=== PATIENT | female | born 1990 | race African-American/Black ===

== ENCOUNTER 2017-11-23 16:54 | Emergency (ER) | payer SELFPAY ==
[2017-11-23] MEDS ORDERED: ONDANSETRON 4 MG/2 ML VIAL ONE (18:21)
[2017-11-23] MEDS ORDERED: METOCLOPRAMIDE 10 MG/2mL INJ ONE (18:21)
[2017-11-23] MEDS ORDERED: DIPHENHYDRAMINE 50 MG/ML VIAL ONE (18:21)
[2017-11-23] MEDS ORDERED: NA CHLORIDE 0.9% 1,000 ML ONE (18:21)
--- NOTE | 2017-11-23 19:00 | EDPHYS ---
Physician Documentation [facility] Name: Cindy Gomez Age: 27 yrs Sex: Female : 1990 Arrival Date: 11/23/2017 Time: 16:55 Bed 24 Private MD: ED Physician Brian Angulo HPI: 11/23 17:50 This 27 yrs old Black Female presents to ER via Ambulatory with complaints of Headache. cp 17:50 The patient complains of pain to the right side of forehead and right temporal area and cp right frontal area. 17:50 The patient describes the headache as waxing and waning. cp 17:50 Onset: The symptoms/episode began/occurred 3 day(s) ago. cp 17:50 Associated signs and symptoms: Pertinent negatives: altered mental status, dizziness, cp fever, neck stiffness, paresthesias, sinus congestion, sinus tenderness, vision loss, weakness. Severity of symptoms: in the emergency department the pain has improved, mildly. 17:50 Headache History: Other patient denies headache being worst headache of life and denies cp "thunderclap" type onset. Patient reports location of headache different from previous. 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 - Social history:: Smoking status: Patient uses tobacco products, smokes one-half pack cigarettes per day. ROS: 18:00 Constitutional: Negative for body aches, chills, fever, poor PO intake. cp 18:00 Eyes: Negative for injury, pain, redness, and discharge. cp Exam: 18:08 Constitutional: The patient appears in no acute distress, alert, awake, non-toxic, well cp developed, well nourished, obese. 18:08 Eyes: Pupils equal round and reactive to light, extra-ocular motions intact. Lids and cp lashes normal. Conjunctiva and sclera are non-icteric and not injected. Cornea within normal limits. Periorbital areas with no swelling, redness, or edema. ENT: Nares patent. No nasal discharge, no septal abnormalities noted. Tympanic membranes are normal and external auditory canals are clear. Oropharynx with no redness, swelling, or masses, exudates, or evidence of obstruction, uvula midline. Mucous membranes moist. Neck: Trachea midline, no thyromegaly or masses palpated, and no cervical lymphadenopathy. Supple, full range of motion without nuchal rigidity, or vertebral point tenderness. No Meningismus. Chest/axilla: Normal chest wall appearance and motion. Nontender with no deformity. No lesions are appreciated. Cardiovascular: Regular rate and rhythm with a normal S1 and S2. No gallops, murmurs, or rubs. Normal PMI, no JVD. No pulse deficits. Respiratory: Lungs have equal breath sounds bilaterally, clear to auscultation and percussion. No rales, rhonchi or wheezes noted. No increased work of breathing, no retractions or nasal flaring. Abdomen/GI: Soft, non-tender, with normal bowel sounds. No distension or tympany. No guarding or rebound. No evidence of tenderness throughout. Skin: Warm, dry with normal turgor. Normal color with no rashes, no lesions, and no evidence of cellulitis. Neuro: Awake and alert, GCS 15, oriented to person, place, time, and situation. Cranial nerves II-XII grossly intact. Motor strength 5/5 in all extremities. Sensory grossly intact. Cerebellar exam normal. Normal gait. 18:08 Head/face: Noted is tenderness, that is mild, of the right confucianist and right side of forehead and right temporal area. Vital Signs: 17:13 BP 146 / 92; Pulse 85; Resp 16; Temp 97.8; Pulse Ox 100% on R/A; Weight 136.08 kg; aj Height 5 ft. 6 in. (167.64 cm); Pain 8/10; 19:02 BP 141 / 87; Pulse 84; Resp 16; Pulse Ox 100% on R/A; Pain 0/10; lk1 17:13 Body Mass Index 48.42 (136.08 kg, 167.64 cm) aj MDM: 17:17 Patient medically screened. cp 18:00 Differential diagnosis: meningitis, migraine, otitis, sinusitis, subarachnoid bleed, cp subdural hematoma, tension headache. 18:58 Data reviewed: vital signs, nurses notes, VSS. Patient reports headache resolved, and cp as a result, I will discharge patient. 11/23 17:46 Order name: IV; Complete Time: 18:02 cp Administered Medications: 18:28 Drug: NS 0.9% 1000 ml Route: IV; Rate: 1 bolus; Site: right antecubital; lk1 18:50 Follow up: IV Status: Order to discontinue infusion; IV Intake: 250ml lk1 19:11 Follow up: Response: No adverse reaction lk1 18:28 Drug: Zofran 4 mg Route: IVP; Site: right antecubital; lk1 18:50 Follow up: Response: No adverse reaction; Marked relief of symptoms lk1 18:30 Drug: Reglan 10 mg Route: IVP; Site: right antecubital; lk1 18:50 Follow up: Response: No adverse reaction; Marked relief of symptoms lk1 18:32 Drug: Benadryl 25 mg Route: IVP; Site: right antecubital; lk1 18:50 Follow up: Response: No adverse reaction; Marked relief of symptoms lk1 Disposition: 11/23/17 18:59 Discharged to Home. Impression: Headache. - Condition is Stable. - Discharge Instructions: General Headache Without Cause. - Prescriptions for Fiorinal 50- 325-40 mg Oral Capsule - take 1 capsule by ORAL route every 4 hours As needed - not to exceed 6 capsules per day; 20 capsule. Zofran 4 mg Oral Tablet - take 1 tablet by ORAL route every 12 hours As needed; 20 tablet. - Work release form, Medication Reconciliation Form, Thank You Letter, Antibiotic Education, Prescription Opioid Use form. - Follow up: Osvaldo Patterson MD; When: 1 - 2 days; Reason: Recheck today's complaints. - Problem is new. - Symptoms have improved. Addendum: 11/26/2017 19:02 Co-signature as Attending Physician, Brian Angulo MD. r n Signatures: Mary Crowe RN RN aj Nieto, Roman, MD MD rn Page, Corey, PA PA cp Kluge, Leah, RN RN lk1 Corrections: (The following items were deleted from the chart) 11/23 19:10 17:46 Urine Dipstick-Ancillary ordered. cp lk1 19:10 17:46 Urine Test ordered. cp lk1
--- NOTE | 2017-11-23 19:00 | ER ---
Nurse's Notes [facility] Name: Cindy Gomez Age: 27 yrs Sex: Female : 1990 Arrival Date: 11/23/2017 Time: 16:55 Bed 24 Private MD: Diagnosis: Headache Presentation: 11/23 17:12 Presenting complaint: Patient states: Headache that started 3 days ago and has aj increased in severity. Reports pain is on right side of head. Denies N/V or photosensitivity. Transition of care: patient was not received from another setting of care. Onset of symptoms was November 19, 2017. Initial Sepsis Screen: Does the patient meet any 2 criteria? No. Patient's initial sepsis screen is negative. Does the patient have a suspected source of infection? No. Patient's initial sepsis screen is negative. Care prior to arrival: None. 17:12 Method Of Arrival: Ambulatory 17:12 Acuity: AUDREY 3 aj Triage Assessment: 17:13 Headache History: The patient has had previous headaches and this one is different than aj previous episodes, and this one is more severe than previous episodes. General: Appears in no apparent distress. uncomfortable, Behavior is calm, cooperative, appropriate for age. Pain: Complains of pain in right frontal area, right temporal area, right side of forehead, right episcopalian and right eye Pain currently is 8 out of 10 on a pain scale. Pain began gradually, Also complains of no other associated symptoms. Neuro: Level of Consciousness is awake, alert, obeys commands, Oriented to person, place, time, situation, Appropriate for age. Respiratory: Airway is patent Respiratory effort is even, unlabored, Respiratory pattern is regular, symmetrical. Derm: Skin is intact, is healthy with good turgor, Skin is pink, warm \T\ dry. normal. 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 - Social history:: Smoking status: Patient uses tobacco products, smokes one-half pack cigarettes per day. Screenin:58 Abuse screen: Denies threats or abuse. Denies injuries from another. Nutritional lk1 screening: No deficits noted. Tuberculosis screening: No symptoms or risk factors identified. Fall Risk None identified. Assessment: 18:20 General: Appears in no apparent distress. Behavior is calm, cooperative, appropriate lk1 for age. Pain: Complains of pain in head Pain currently is 8 out of 10 on a pain scale. Quality of pain is described as aching. Neuro: Level of Consciousness is awake, alert, obeys commands, Oriented to person, place, time, situation. Cardiovascular: Capillary refill is brisk Patient's skin is warm and dry. Respiratory: Airway is patent Respiratory effort is even, unlabored, Respiratory pattern is regular, symmetrical. GI: No signs and/or symptoms were reported involving the gastrointestinal system. : No signs and/or symptoms were reported regarding the genitourinary system. EENT: No signs and/or symptoms were reported regarding the EENT system. Derm: No signs and/or symptoms reported regarding the dermatologic system. Musculoskeletal: No signs and/or symptoms reported regarding the musculoskeletal system. 18:50 Reassessment: Patient became anxious and asked IV fluids to be discontinued after lk1 infusing 250ml. States he headache is gone and she needs to be discharged. PA notified. Patient denies pain at this time. Patient states feeling better. Patient states symptoms have improved. Critical care time stopped, patient has stabilized. Vital Signs: 17:13 BP 146 / 92; Pulse 85; Resp 16; Temp 97.8; Pulse Ox 100% on R/A; Weight 136.08 kg; aj Height 5 ft. 6 in. (167.64 cm); Pain 8/10; 19:02 BP 141 / 87; Pulse 84; Resp 16; Pulse Ox 100% on R/A; Pain 0/10; lk1 17:13 Body Mass Index 48.42 (136.08 kg, 167.64 cm) ED Course: 16:55 Patient arrived in ED. as 17:13 Triage completed. aj 17:13 Arm band placed on right wrist. Patient placed in an exam room. aj 17:16 Tavon Dimas PA is PHCP. cp 17:16 Brian Angulo MD is Attending Physician. cp 18:02 Inserted saline lock: 22 gauge in left antecubital area, using aseptic technique. kr2 18:19 Hilda Andrea, RN is Primary Nurse. lk1 18:28 No provider procedures requiring assistance completed. IV infiltrated upon starting IV lk1 infusion of NS. 18:28 Inserted saline lock: 22 gauge in right antecubital area, using aseptic technique. lk1 18:59 Osvaldo Patterson MD is Referral Physician. 18:59 Patient has correct armband on for positive identification. Bed in low position. Call lk1 light in reach. Administered Medications: 18:28 Drug: NS 0.9% 1000 ml Route: IV; Rate: 1 bolus; Site: right antecubital; lk1 18:50 Follow up: IV Status: Order to discontinue infusion; IV Intake: 250ml lk1 19:11 Follow up: Response: No adverse reaction lk1 18:28 Drug: Zofran 4 mg Route: IVP; Site: right antecubital; lk1 18:50 Follow up: Response: No adverse reaction; Marked relief of symptoms lk1 18:30 Drug: Reglan 10 mg Route: IVP; Site: right antecubital; lk1 18:50 Follow up: Response: No adverse reaction; Marked relief of symptoms lk1 18:32 Drug: Benadryl 25 mg Route: IVP; Site: right antecubital; lk1 18:50 Follow up: Response: No adverse reaction; Marked relief of symptoms lk1 Intake: 18:50 IV: 250ml; Total: 250ml. lk1 Outcome: 18:59 Discharge ordered by . 19:08 Discharged to home ambulatory. lk1 19:08 Condition: good 19:08 Discharge instructions given to patient, Instructed on discharge instructions, follow up and referral plans. medication usage, safety practices, Demonstrated understanding of instructions, follow-up care, medications, Prescriptions given X 2. 19:12 Patient left the ED. lk1 Signatures: Mary Crowe RN Jade Whitaker Corey, PA PA cp Hilda Andrea RN RN lk1 Marta Klein RN RN kr2
== END 2017-11-23 19:12 | disposition home or self-care (01) ==
LOC: ER 16:54
DX: R51 Headache (principal)
CPT/HCPCS: 96374; 96375; 99283; J2405; J2765; J7030

== ENCOUNTER 2017-12-13 15:07 | Emergency (ER) | payer SELFPAY ==
--- NOTE | 2017-12-13 16:09 | EDPHYS ---
Physician Documentation [facility] Name: Cindy Gomez Age: 27 yrs Sex: Female : 1990 Arrival Date: 12/13/2017 Time: 15:11 Bed 9 Private MD: ED Physician Brian Angulo HPI: 12/13 16:05 This 27 yrs old Black Female presents to ER via Ambulatory with complaints of Toothache.snw 16:05 The patient presents with pain, swelling. The problem is located in the lower left snw first molar (#19). The problem is located in the lower left first molar (#19) and lower left second molar (#18) and lower left third molar (#17). Onset: The symptoms/episode began/occurred gradually, and became worse and became persistent. Duration: The symptoms are intermittent. Severity of symptoms: At their worst the symptoms were moderate, severe. The patient has not experienced similar symptoms in the past. The patient has not recently seen a physician. Historical: - Allergies: 15:15 No Known Allergies; ph - Home Meds: 15:15 None [Active]; ph - PMHx: 15:15 Anemia; ph - PSHx: 15:15 None; ph - Immunization history:: Adult Immunizations unknown. - Social history:: Smoking status: Patient uses tobacco products, smokes one-half pack cigarettes per day. ROS: 16:04 Constitutional: Negative for fever, chills, and weight loss, Eyes: Negative for injury, snw pain, redness, and discharge, Neck: Negative for injury, pain, and swelling, Cardiovascular: Negative for chest pain, palpitations, and edema, Respiratory: Negative for shortness of breath, cough, wheezing, and pleuritic chest pain, Abdomen/GI: Negative for abdominal pain, nausea, vomiting, diarrhea, and constipation, Back: Negative for injury and pain, : Negative for injury, bleeding, discharge, and swelling, MS/Extremity: Negative for injury and deformity, Skin: Negative for injury, rash, and discoloration, Neuro: Negative for headache, weakness, numbness, tingling, and seizure. 16:04 ENT: Positive for dental pain, appt with dentist in [place] - not for a month. Exam: 16:03 Constitutional: This is a well developed, well nourished patient who is awake, alert, snw and in no acute distress. Head/Face: Normocephalic, atraumatic. Eyes: Pupils equal round and reactive to light, extra-ocular motions intact. Lids and lashes normal. Conjunctiva and sclera are non-icteric and not injected. Cornea within normal limits. Periorbital areas with no swelling, redness, or edema. Neck: Trachea midline, no thyromegaly or masses palpated, and no cervical lymphadenopathy. Supple, full range of motion without nuchal rigidity, or vertebral point tenderness. No Meningismus. Chest/axilla: Normal chest wall appearance and motion. Nontender with no deformity. No lesions are appreciated. Respiratory: Lungs have equal breath sounds bilaterally, clear to auscultation and percussion. No rales, rhonchi or wheezes noted. No increased work of breathing, no retractions or nasal flaring. Abdomen/GI: Soft, non-tender, with normal bowel sounds. No distension or tympany. No guarding or rebound. No evidence of tenderness throughout. Back: No spinal tenderness. No costovertebral tenderness. Full range of motion. Skin: Warm, dry with normal turgor. Normal color with no rashes, no lesions, and no evidence of cellulitis. MS/ Extremity: Pulses equal, no cyanosis. Neurovascular intact. Full, normal range of motion. Neuro: Awake and alert, GCS 15, oriented to person, place, time, and situation. Cranial nerves II-XII grossly intact. Motor strength 5/5 in all extremities. Sensory grossly intact. Cerebellar exam normal. Normal gait. 16:03 ENT: External ear(s): no acute changes, Ear canal(s): are normal, Nose: is normal, Mouth: is normal, Posterior pharynx: is normal, Dental exam: dental caries, that is moderate, specifically in the lower left third molar (#17), lower left second molar (#18) and lower left first molar (#19). 16:03 Cardiovascular: Rate: tachycardic, Rhythm: regular, Heart sounds: normal. Vital Signs: 15:15 BP 148 / 105; Pulse 103; Resp 20; Temp 97.3; Pulse Ox 100% on R/A; Weight 136.08 kg; ph Height 5 ft. 6 in. (167.64 cm); Pain 10/10; 17:23 BP 136 / 84; Pulse 92; Resp 15; Temp 97.8; Pulse Ox 99% on R/A; Pain 8/10; ch 15:15 Body Mass Index 48.42 (136.08 kg, 167.64 cm) ph MDM: 15:52 Patient medically screened. snw 16:36 Data reviewed: vital signs, nurses notes. Data interpreted: Pulse oximetry: on room air snw is 100 %. Interpretation: normal. Counseling: I had a detailed discussion with the patient and/or guardian regarding: the historical points, exam findings, and any diagnostic results supporting the discharge/admit diagnosis, the presence of at least one elevated blood pressure reading (>120/80) during this emergency department visit, the need for outpatient follow up, for definitive care, to return to the emergency department if symptoms worsen or persist or if there are any questions or concerns that arise at home. Special discussion: Based on the history and exam findings, there is no indication for further emergent testing or inpatient evaluation. I discussed with the patient/guardian the need to see a dentist for further evaluation of the symptoms. I discussed with the patient/guardian the need to see the primary care provider for further evaluation of the symptoms. Administered Medications: 16:49 Drug: TORadol 60 mg Route: IM; Site: left gluteus; ch 17:56 Follow up: Response: No adverse reaction; Marked relief of symptoms ch 16:49 Drug: Augmentin 875 mg Route: PO; ch 17:56 Follow up: Response: No adverse reaction; Marked relief of symptoms ch Disposition: 18:07 Co-signature as Attending Physician, Brian Angulo MD. rn Disposition: 12/13/17 16:08 Discharged to Home. Impression: Dental caries. - Condition is Stable. - Discharge Instructions: Dental Abscess, Dental Pain, Diet and Dental Disease. - Prescriptions for chlorhexidine gluconate 0.12 % Mucous Membrane mouthwash - place 15 milliliter by MUCOUS MEMBRANE route 2 times per day after brushing teeth, swish in mouth for 30 seconds then spit out; 480 milliliter. Augmentin 500- 125 mg Oral Tablet - take 1 tablet by ORAL route every 8 hours for 10 days; 30 tablet. Diclofenac Sodium 75 mg Oral Tablet Sustained Release - take 1 tablet by ORAL route 2 times per day; 30 tablet. - Work release form, Medication Reconciliation Form, Thank You Letter, Antibiotic Education, Prescription Opioid Use form. - Follow up: Private Physician; When: 2 - 3 days; Reason: Recheck today's complaints, Continuance of care, Re-evaluation by your physician. Follow up: Emergency Department; When: As needed; Reason: Worsening of condition. Signatures: Mahi Ashraf RN RN Adriana Wiley, LEGISLATIVE CORRESPONDENT-C LEGISLATIVE CORRESPONDENT-Csnw Brian Angulo MD MD rn Hall, Patricia, RN RN ph Corrections: (The following items were deleted from the chart) 17:25 16:08 12/13/2017 16:08 Discharged to Home. Impression: Dental caries. Condition is ch Stable. Forms are Medication Reconciliation Form, Thank You Letter, Antibiotic Education, Prescription Opioid Use. Follow up: Private Physician; When: 2 - 3 days; Reason: Recheck today's complaints, Continuance of care, Re-evaluation by your physician. Follow up: Emergency Department; When: As needed; Reason: Worsening of condition. snw
--- NOTE | 2017-12-13 16:09 | ER ---
Nurse's Notes [facility] Name: Cindy Gomez Age: 27 yrs Sex: Female : 1990 Arrival Date: 12/13/2017 Time: 15:11 Bed 9 Private MD: Diagnosis: Dental caries Presentation: 12/13 15:12 Presenting complaint: Patient states: " I have a bad tooth and I can't get into the dentist. I think I may have an abcess." Pt reports pain to L jaw, dental carries noted to lower molars, denies fever, N/V/D. Transition of care: patient was not received from another setting of care. Onset of symptoms was December 13, 2017. Initial Sepsis Screen: Does the patient meet any 2 criteria? No. Patient's initial sepsis screen is negative. Does the patient have a suspected source of infection? No. Patient's initial sepsis screen is negative. Care prior to arrival: None. 15:12 Method Of Arrival: Ambulatory ph 15:12 Acuity: AUDREY 4 ph Historical: - Allergies: 15:15 No Known Allergies; ph - Home Meds: 15:15 None [Active]; ph - PMHx: 15:15 Anemia; ph - PSHx: 15:15 None; ph - Immunization history:: Adult Immunizations unknown. - Social history:: Smoking status: Patient uses tobacco products, smokes one-half pack cigarettes per day. Screenin:23 Abuse screen: Denies threats or abuse. Denies injuries from another. Nutritional ch screening: No deficits noted. Tuberculosis screening: No symptoms or risk factors identified. Fall Risk None identified. Assessment: 17:23 General: Appears in no apparent distress. comfortable, Behavior is calm, cooperative, ch appropriate for age. Pain: Complains of pain in lower left first molar (#19) and lower left second molar (#18) and lower left third molar (#17) Pain currently is 8 out of 10 on a pain scale. Pain began gradually. Neuro: No deficits noted. Respiratory: Airway is patent Respiratory effort is even, unlabored. GI: No signs and/or symptoms were reported involving the gastrointestinal system. EENT: Oral mucosa is moist. Poor dentition noted. Derm: Skin is pink, warm \\T\\ dry. Vital Signs: 15:15 BP 148 / 105; Pulse 103; Resp 20; Temp 97.3; Pulse Ox 100% on R/A; Weight 136.08 kg; ph Height 5 ft. 6 in. (167.64 cm); Pain 10/10; 17:23 BP 136 / 84; Pulse 92; Resp 15; Temp 97.8; Pulse Ox 99% on R/A; Pain 8/10; ch 15:15 Body Mass Index 48.42 (136.08 kg, 167.64 cm) ph ED Course: 15:11 Patient arrived in ED. rg4 15:15 Triage completed. ph 15:17 Adriana Landon FNP-C [facility]. snw 15:17 Brian Agnulo MD is Attending Physician. snw 15:17 Arm band placed on. ph 16:49 Mahi Ashraf, RN is Primary Nurse. ch 17:23 No apparent distress. Resting quietly. ch 17:23 Patient has correct armband on for positive identification. Bed in low position. Call light in reach. Side rails up X 1. Adult w/ patient. 17:23 No provider procedures requiring assistance completed. Patient did not have IV access ch during this emergency room visit. Administered Medications: 16:49 Drug: TORadol 60 mg Route: IM; Site: left gluteus; ch 17:56 Follow up: Response: No adverse reaction; Marked relief of symptoms 16:49 Drug: Augmentin 875 mg Route: PO; ch 17:56 Follow up: Response: No adverse reaction; Marked relief of symptoms ch Outcome: 16:08 Discharge ordered by . snw 17:23 Discharged to home ambulatory, with family. 17:23 Condition: improved 17:23 Discharge instructions given to patient, family, Instructed on discharge instructions, follow up and referral plans. medication usage, Demonstrated understanding of instructions, follow-up care, medications, Prescriptions given X 3. 17:25 Patient left the ED. ch Signatures: Mahi Ashraf, DILLON RN Adriana Wiley FNP-C FNP-Margie Solorzano RN RN ph Yulia Cooper rg4
[2017-12-13] MEDS ORDERED: KETOROLAC 30 MG/ML INJ ONE (16:51)
[2017-12-13] MEDS ORDERED: AMOX TR/K CLAV 400MG CHEW TAB PO ONE (16:51)
== END 2017-12-13 17:25 | disposition home or self-care (01) ==
LOC: ER 15:07
DX: K02.9 Dental caries, unspecified (principal); F17.210 Nicotine dependence, cigarettes, uncomplicated
CPT/HCPCS: 96372; 99283

== ENCOUNTER 2017-12-14 14:49 | Emergency (ER) | payer SELFPAY ==
--- NOTE | 2017-12-14 15:10 | ER ---
Nurse's Notes [facility] Name: Cindy Gomez Age: 27 yrs Sex: Female : 1990 Arrival Date: 12/14/2017 Time: 14:51 Bed 16 Private MD: None, None Diagnosis: Dental abscess Presentation: 12/14 14:55 Presenting complaint: Patient states: Dental abscess to left lower jaw, seen yesterday aj for same complaint but was unable to afford ABX. Transition of care: patient was not received from another setting of care. Onset of symptoms was December 14, 2017. Care prior to arrival: None. 14:55 Method Of Arrival: Ambulatory 14:55 Acuity: AUDREY 5 aj Triage Assessment: 14:57 General: Appears in no apparent distress. comfortable, Behavior is calm, cooperative, aj appropriate for age. Pain: Complains of pain in lower left second molar and lower left first molar. EENT: Reports pain in lower left second molar and lower left first molar. Neuro: Level of Consciousness is awake, alert, obeys commands, Oriented to person, place, time, situation, Appropriate for age. Respiratory: Airway is patent Respiratory effort is even, unlabored, Respiratory pattern is regular, symmetrical. Derm: Skin is intact, is healthy with good turgor, Skin is pink, warm \T\ dry. normal. 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 - Social history:: Smoking status: Patient/guardian denies using tobacco. Assessment: 15:04 Reassessment: Chris PRUITT at bedside assessing pt at this time. Vital Signs: 14:57 BP 148 / 59; Pulse 100; Resp 20; Temp 98.4; Pulse Ox 99% on R/A; Weight 136.08 kg; aj Height 5 ft. 6 in. (167.64 cm); 14:57 Body Mass Index 48.42 (136.08 kg, 167.64 cm) ED Course: 14:51 Patient arrived in ED. mr 14:51 None, None is Private Physician. mr 14:57 Triage completed. aj 14:57 Arm band placed on left wrist. Patient placed in an exam room. aj 15:00 Preet Marcano, DILLON is Primary Nurse. sg 15:01 Ana Cristina Pal FNP is PHCP. ka 15:01 Christopher Krause MD is Attending Physician. ka 15:03 Chris Pitts PA is PHCP. jr8 Administered Medications: 15:24 Drug: Amoxicillin 875 mg Route: PO; sg Outcome: 15:09 Discharge ordered by . jr8 15:25 Patient left the ED. sg Signatures: Preet Marcano RN RN sg Myers, Amanda, RN RN aj Vern, Katherine, FNP FNP kav Rivera, Maria mr Chris Pitts PA PA jr8
--- NOTE | 2017-12-14 15:10 | EDPHYS ---
Physician Documentation [facility] Name: Cindy Gomez Age: 27 yrs Sex: Female : 1990 Arrival Date: 12/14/2017 Time: 14:51 Bed 16 Private MD: None, None ED Physician Christopher Krause HPI: 12/14 15:10 This 27 yrs old Black Female presents to ER via Ambulatory with complaints of Abscess jr8 Recheck. 15:10 Patient presents to ED for recheck of: abscess. The affected area is on the mouth. The jr8 patient has not experienced similar symptoms in the past. The patient has been recently seen by a physician:. Patient stated that she was seen yesterday for abscess. Given antibiotics. Abscess worse now. Could not afford antibiotics . 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 - Social history:: Smoking status: Patient/guardian denies using tobacco. ROS: 15:10 Eyes: Negative for injury, pain, redness, and discharge, Neck: Negative for injury, jr8 pain, and swelling, Cardiovascular: Negative for chest pain, palpitations, and edema, Respiratory: Negative for shortness of breath, cough, wheezing, and pleuritic chest pain, Abdomen/GI: Negative for abdominal pain, nausea, vomiting, diarrhea, and constipation, Back: Negative for injury and pain, MS/Extremity: Negative for injury and deformity, Skin: Negative for injury, rash, and discoloration, Neuro: Negative for headache, weakness, numbness, tingling, and seizure. 15:10 ENT: Positive for dental pain, Gum pain Exam: 15:10 Eyes: Pupils equal round and reactive to light, extra-ocular motions intact. Lids and jr8 lashes normal. Conjunctiva and sclera are non-icteric and not injected. Cornea within normal limits. Periorbital areas with no swelling, redness, or edema. Neck: Trachea midline, no thyromegaly or masses palpated, and no cervical lymphadenopathy. Supple, full range of motion without nuchal rigidity, or vertebral point tenderness. No Meningismus. Cardiovascular: Regular rate and rhythm with a normal S1 and S2. No gallops, murmurs, or rubs. Normal PMI, no JVD. No pulse deficits. Respiratory: Lungs have equal breath sounds bilaterally, clear to auscultation and percussion. No rales, rhonchi or wheezes noted. No increased work of breathing, no retractions or nasal flaring. Abdomen/GI: Soft, non-tender, with normal bowel sounds. No distension or tympany. No guarding or rebound. No evidence of tenderness throughout. Back: No spinal tenderness. No costovertebral tenderness. Full range of motion. Skin: Warm, dry with normal turgor. Normal color with no rashes, no lesions, and no evidence of cellulitis. MS/ Extremity: Pulses equal, no cyanosis. Neurovascular intact. Full, normal range of motion. Neuro: Awake and alert, GCS 15, oriented to person, place, time, and situation. Cranial nerves II-XII grossly intact. Motor strength 5/5 in all extremities. Sensory grossly intact. Cerebellar exam normal. Normal gait. 15:10 ENT: Exam is negative for earache, ear discharge, TM abnormalities, nasal discharge, Dental exam: abscess, that is mild, specifically in the lower left second molar. Vital Signs: 14:57 BP 148 / 59; Pulse 100; Resp 20; Temp 98.4; Pulse Ox 99% on R/A; Weight 136.08 kg; aj Height 5 ft. 6 in. (167.64 cm); 14:57 Body Mass Index 48.42 (136.08 kg, 167.64 cm) Procedures: 15:08 I \T\ D: Incision and drainage was performed for an abscess of the left lower left second jr8 molar Incised with #10 blade. Drained small amount purulent fluid. the patient tolerated the procedure well. MDM: 15:03 Patient medically screened. 8 15:08 Data reviewed: vital signs, nurses notes, and as a result, I will discharge patient. 8 Data interpreted: Pulse oximetry: on room air is 99 %. Interpretation: normal. Counseling: I had a detailed discussion with the patient and/or guardian regarding: the historical points, exam findings, and any diagnostic results supporting the discharge/admit diagnosis, the need for outpatient follow up, a dentist, to return to the emergency department if symptoms worsen or persist or if there are any questions or concerns that arise at home. Administered Medications: 15:24 Drug: Amoxicillin 875 mg Route: PO; sg Disposition: 18:03 Co-signature as Attending Physician, Christopher Krause MD I agree with the assessment and kdr plan of care. Disposition: 12/14/17 15:09 Discharged to Home. Impression: Dental abscess. - Condition is Stable. - Discharge Instructions: Dental Abscess. - Prescriptions for Amoxicillin 875 mg Oral Tablet - take 1 tablet by ORAL route every 12 hours for 10 days; 20 tablet. - Work release form, Medication Reconciliation Form, Thank You Letter, Antibiotic Education, Prescription Opioid Use form. - Follow up: Private Physician; When: 5 - 6 days; Reason: Recheck today's complaints, Continuance of care, Re-evaluation by your physician. - Problem is new. - Symptoms have improved. Signatures: Preet Marcano RN RN sg Myers, Amanda, RN RN aj Rittger, Kevin, MD MD [facility] Chris Pitts PA PA jr8 Corrections: (The following items were deleted from the chart) 15:25 15:09 12/14/2017 15:09 Discharged to Home. Impression: Dental abscess. Condition is sg Stable. Forms are Medication Reconciliation Form, Thank You Letter, Antibiotic Education, Prescription Opioid Use. Follow up: Private Physician; When: 5 - 6 days; Reason: Recheck today's complaints, Continuance of care, Re-evaluation by your physician. Problem is new. Symptoms have improved. jr8
[2017-12-14] MEDS ORDERED: AMOX/K CLAV 875 MG TAB ONE (15:20)
== END 2017-12-14 15:25 | disposition home or self-care (01) ==
LOC: ER 14:49
DX: K04.7 Periapical abscess without sinus (principal)
CPT/HCPCS: 99282

== ENCOUNTER 2017-12-29 17:27 | Emergency (ER) | payer SELFPAY ==
[2017-12-29] MEDS ORDERED: HYDROCODONE/APAP 10/325 TAB ONE (19:07)
[2017-12-29] MEDS ORDERED: CLINDAMYCIN 600MG/D5W 600 MG/50 ML BAG IV ONE (19:07)
--- NOTE | 2017-12-29 19:12 | ER ---
Nurse's Notes [facility] Name: Cindy Gomez Age: 27 yrs Sex: Female : 1990 Arrival Date: 12/29/2017 Time: 17:31 Bed 26 Private MD: None, None Diagnosis: Dental caries Presentation: 12/29 18:01 Presenting complaint: Patient states: Pain and swelling to left side of face. Patient aj seen in this ER 2 weeks ago for abscess in same place, given ABX. Transition of care: patient was not received from another setting of care. Onset of symptoms was December 28, 2017. Care prior to arrival: None. 18:01 Method Of Arrival: Ambulatory aj 18:01 Acuity: AUDREY 4 aj 19:36 Risk Assessment: Do you want to hurt yourself or someone else? Patient reports no lk1 desire to harm self or others. Initial Sepsis Screen: Does the patient meet any 2 criteria? HR > 90 bpm. No. Patient's initial sepsis screen is negative. Does the patient have a suspected source of infection? No. Patient's initial sepsis screen is negative. Triage Assessment: 18:02 General: Appears in no apparent distress. uncomfortable, Behavior is calm, cooperative, aj appropriate for age. Pain: Complains of pain in left zygomatic area and left cheek. EENT: Reports pain in left zygomatic area and left cheek. Neuro: Level of Consciousness is awake, alert, obeys commands, Oriented to person, place, time, situation, Appropriate for age. Respiratory: Airway is patent Respiratory effort is even, unlabored, Respiratory pattern is regular, symmetrical. Derm: Skin is intact, is healthy with good turgor, Skin is pink, warm \T\ dry. normal. 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 - Social history:: Smoking status: Patient uses tobacco products, smokes one-half pack cigarettes per day. - Ebola Screening: : No symptoms or risks identified at this time. Screenin:31 Abuse screen: Denies threats or abuse. Denies injuries from another. Nutritional lk1 screening: No deficits noted. Tuberculosis screening: No symptoms or risk factors identified. Fall Risk None identified. Assessment: 18:30 General: Appears uncomfortable, Behavior is cooperative, crying. Pain: Complains of lk1 pain in left corner of mouth Pain currently is 10 out of 10 on a pain scale. Neuro: Level of Consciousness is awake, alert, obeys commands, Oriented to person, place, time, situation. Cardiovascular: Capillary refill is brisk Patient's skin is warm and dry. Respiratory: Airway is patent Respiratory effort is even, unlabored, Respiratory pattern is regular, symmetrical. EENT: Dental caries noted in lower left third molar (#17), lower left second molar (#18) and lower left first molar (#19) Reports pain in mouth. Vital Signs: 18:02 BP 142 / 80; Pulse 107; Resp 20; Temp 98.0; Pulse Ox 99% on R/A; Weight 136.08 kg; aj Height 5 ft. 6 in. (167.64 cm); 19:40 BP 137 / 84; Pulse 94; Resp 18; Pulse Ox 100% on R/A; Pain 10/10; lk1 18:02 Body Mass Index 48.42 (136.08 kg, 167.64 cm) aj ED Course: 17:31 Patient arrived in ED. mr 17:31 None, None is Private Physician. mr 18:02 Triage completed. aj 18:02 Arm band placed on left wrist. Patient placed in an exam room. aj 18:36 Marco Antonio Gallardo NP is PHCP. pm1 18:37 Christopher Krause MD is Attending Physician. pm1 18:57 Hilda Andrea, DILLON is Primary Nurse. lk1 19:34 Patient has correct armband on for positive identification. Bed in low position. Call lk1 light in reach. Adult w/ patient. 19:34 No provider procedures requiring assistance completed. Patient did not have IV access lk1 during this emergency room visit. Administered Medications: 19:10 Drug: Clindamycin 600 mg {Note: split- 2ml in right gluteus, 2ml in left gluteus.} lk1 Route: IM; Site: Other; 19:35 Follow up: Response: No adverse reaction lk1 19:10 Drug: [place] 10 mg-325 mg 1 tabs Route: PO; lk1 19:40 Follow up: Response: No adverse reaction; Pain is decreased lk1 Outcome: 19:12 Discharge ordered by MD. pm1 19:44 Discharged to home ambulatory, with family. lk1 19:44 Condition: good 19:44 Discharge instructions given to patient, Instructed on discharge instructions, follow up and referral plans. medication usage, safety practices, Demonstrated understanding of instructions, follow-up care, medications, Prescriptions given X 2. 19:45 Patient left the ED. lk1 Signatures: Mary Crowe, RN Gris Wilson Leah, RN RN lk1 Marco Antonio Gallardo, EXPEDITER CLERK EXPEDITER CLERK pm1
--- NOTE | 2017-12-29 19:12 | EDPHYS ---
Physician Documentation [facility] Name: Cindy Gomez Age: 27 yrs Sex: Female : 1990 Arrival Date: 12/29/2017 Time: 17:31 Bed 26 Private MD: None, None ED Physician Christopher Krause HPI: 12/29 19:09 This 27 yrs old Black Female presents to ER via Ambulatory with complaints of Dental pm1 pain. 19:09 Patient was seen here on 12/13 and 12/14 for the same complaint of left lower molar pain. pm1 Patient was prescribed Augmentin. Patient took the medications after the 12/14 visit and her pain improved. Patient did not follow up with a dentist and her pain has returned to the same area. 19:09 Onset: The symptoms/episode began/occurred 2 day(s) ago. Associated signs and symptoms: pm1 Pertinent negatives: fever, sore throat, dysphagia, facial swelling. Modifying factors: the symptoms are aggravated by chewing and food. Severity of symptoms: in the emergency department the symptoms are actually worse. 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 - Social history:: Smoking status: Patient uses tobacco products, smokes one-half pack cigarettes per day. - Ebola Screening: : No symptoms or risks identified at this time. ROS: 19:09 Constitutional: Negative for fever, chills, and weight loss, Eyes: Negative for injury, pm1 pain, redness, and discharge. 19:09 Neck: Negative for injury, pain, and swelling, Cardiovascular: Negative for chest pain, palpitations, and edema, Respiratory: Negative for shortness of breath, cough, wheezing, and pleuritic chest pain, Abdomen/GI: Negative for abdominal pain, nausea, vomiting, diarrhea, and constipation, Back: Negative for injury and pain, : Negative for injury, bleeding, discharge, and swelling, MS/Extremity: Negative for injury and deformity, Skin: Negative for injury, rash, and discoloration, Neuro: Negative for headache, weakness, numbness, tingling, and seizure. 19:09 ENT: Positive for dental pain, Negative for ear pain, sore throat, difficulty swallowing, difficulty handling secretions, hoarseness. Exam: 19:09 Constitutional: This is a well developed, well nourished patient who is awake, alert, pm1 and in no acute distress. Head/Face: Normocephalic, atraumatic. Eyes: Pupils equal round and reactive to light, extra-ocular motions intact. Lids and lashes normal. Conjunctiva and sclera are non-icteric and not injected. Cornea within normal limits. Periorbital areas with no swelling, redness, or edema. 19:09 Neck: Trachea midline, no thyromegaly or masses palpated, and no cervical lymphadenopathy. Supple, full range of motion without nuchal rigidity, or vertebral point tenderness. No Meningismus. Chest/axilla: Normal chest wall appearance and motion. Nontender with no deformity. No lesions are appreciated. Cardiovascular: Regular rate and rhythm with a normal S1 and S2. No gallops, murmurs, or rubs. Normal PMI, no JVD. No pulse deficits. Respiratory: Lungs have equal breath sounds bilaterally, clear to auscultation and percussion. No rales, rhonchi or wheezes noted. No increased work of breathing, no retractions or nasal flaring. Abdomen/GI: Soft, non-tender, with normal bowel sounds. No distension or tympany. No guarding or rebound. No evidence of tenderness throughout. Back: No spinal tenderness. No costovertebral tenderness. Full range of motion. Skin: Warm, dry with normal turgor. Normal color with no rashes, no lesions, and no evidence of cellulitis. MS/ Extremity: Pulses equal, no cyanosis. Neurovascular intact. Full, normal range of motion. 19:09 ENT: External ear(s): are unremarkable, Ear canal(s): are normal, TM's: are normal, Nose: is normal, Mouth: Lips: normal, Oral mucosa: normal, Gums: normal with healthy appearance, Tongue: is normal, abscess, is not appreciated, No trismus, Posterior pharynx: is normal, airway is patent, no pooling of secretions, no swelling, Dental exam: dental caries, that is severe, specifically in the upper left second molar (#15), upper left third molar (#16), lower left third molar (#17) and lower left second molar (#18). 19:09 Neuro: Orientation: is normal, Motor: is normal, moves all fours. Vital Signs: 18:02 BP 142 / 80; Pulse 107; Resp 20; Temp 98.0; Pulse Ox 99% on R/A; Weight 136.08 kg; aj Height 5 ft. 6 in. (167.64 cm); 19:40 BP 137 / 84; Pulse 94; Resp 18; Pulse Ox 100% on R/A; Pain 10/10; lk1 18:02 Body Mass Index 48.42 (136.08 kg, 167.64 cm) aj MDM: 18:57 Patient medically screened. pm1 19:10 Data reviewed: vital signs. Data interpreted: Pulse oximetry: on room air is 99 %. pm1 Interpretation: normal. Counseling: I had a detailed discussion with the patient and/or guardian regarding: the historical points, exam findings, and any diagnostic results supporting the discharge/admit diagnosis, the need for outpatient follow up, for definitive care, a dentist, to return to the emergency department if symptoms worsen or persist or if there are any questions or concerns that arise at home. Administered Medications: 19:10 Drug: Clindamycin 600 mg {Note: split- 2ml in right gluteus, 2ml in left gluteus.} lk1 Route: IM; Site: Other; 19:35 Follow up: Response: No adverse reaction [facility] 19:10 Drug: [place] 10 mg-325 mg 1 tabs Route: PO; 1 19:40 Follow up: Response: No adverse reaction; Pain is decreased lk Disposition: 22:17 Co-signature as Attending Physician, Christopher Krause MD I agree with the assessment and kdr plan of care. Disposition: 12/29/17 19:12 Discharged to Home. Impression: Dental caries. - Condition is Stable. - Discharge Instructions: Dental Pain. - Prescriptions for Clindamycin HCl 300 mg Oral Capsule - take 1 capsule by ORAL route every 6 hours for 10 days; 40 capsule. Tylenol- Codeine #3 300-30 mg Oral Tablet - take 2 tablets by ORAL route every 6 hours As needed; 20 tablet. - Medication Reconciliation Form, Thank You Letter, Antibiotic Education, Prescription Opioid Use form. - Follow up: Emergency Department; When: As needed; Reason: Worsening of condition. Follow up: Private Physician; When: 2 - 3 days; Reason: Recheck today's complaints, Continuance of care, Re-evaluation by your physician. - Problem is new. - Symptoms have improved. Signatures: Mary Crowe, RN RN Christopher Trujillo MD MD kdr Hilda Andrea RN RN lk1 Marco Antonio Gallardo NP PLY SPLICER pm1 Corrections: (The following items were deleted from the chart) 19:45 19:12 12/29/2017 19:12 Discharged to Home. Impression: Dental caries. Condition is lk1 Stable. Forms are Medication Reconciliation Form, Thank You Letter, Antibiotic Education, Prescription Opioid Use. Follow up: Emergency Department; When: As needed; Reason: Worsening of condition. Follow up: Private Physician; When: 2 - 3 days; Reason: Recheck today's complaints, Continuance of care, Re-evaluation by your physician. Problem is new. Symptoms have improved. pm1
== END 2017-12-29 19:45 | disposition home or self-care (01) ==
LOC: ER 17:27
DX: K02.9 Dental caries, unspecified (principal); F17.210 Nicotine dependence, cigarettes, uncomplicated
CPT/HCPCS: 96372; 99283

== ENCOUNTER 2018-01-25 11:18 | Emergency (ER) | payer SELFPAY ==
[2018-01-25 12:34] LABS: Hematocrit 29.1 % (36.0-45.0); MCH 15.9 pg (27.0-35.0); MCV 55.9 fL (80-100); MPV 9.6 fL (7.6-11.3)
[2018-01-25 12:36] LABS: Protime INR 1.06
--- NOTE | 2018-01-25 12:44 | EKG ---
Test Date: 2018-01-25 Test Time: 11:37:30 Human Resource Intern: FILEMON MEASUREMENT RESULTS: Intervals: Rate: 71 MD: 138 QRSD: 78 QT: 420 QTc: 456 [place]: P: 26 MD: 138 QRS: 23 T: -8 INTERPRETIVE STATEMENTS: Normal sinus rhythm Nonspecific T wave abnormality Abnormal ECG No previous ECG available for comparison Electronically Signed On 01-25-18 12:43:44 CDT by Ulises Bruce
[2018-01-25 12:55] LABS: ALT/SGPT 25 U/L (12-78); AST/SGOT 18 U/L (15-37); Albumin 3.6 g/dL (3.4-5.0); Alkaline Phosphatase 81 U/L (45-117); BUN Blood Urea Nitrogen 9 mg/dL (7-18); Bicarbonate 25 mmol/L (21-32); Bilirubin Direct < 0.1 mg/dL (0-0.2); Bilirubin Total 0.3 mg/dL (0.2-1.0); Glucose Level 97 mg/dL (74-106); Magnesium 2.2 mg/dL (1.8-2.4); NT PRO-BNP 67 pg/mL (<125); Potassium 4.1 mmol/L (3.5-5.1); Protein, Total 8.1 g/dL (6.4-8.2); Sodium Level 136 mmol/L (136-145)
--- NOTE | 2018-01-25 13:36 | EDPHYS ---
Physician Documentation [facility] Name: Cindy Gomez Age: 27 yrs Sex: Female : 1990 Arrival Date: 01/25/2018 Time: 11:20 Bed 6 Private MD: None, None ED Physician Tavon Valverde HPI: 01/25 12:49 This 27 yrs old Black Female presents to ER via Wheelchair with complaints of jr8 palpitation/shortness of breath. 12:49 The patient presents with a history of irregular heart beat. Context: The symptoms jr8 occur at rest. Onset: The symptoms/episode began/occurred acutely, today. Duration: The patient or guardian reports a single episode. Modifying factors: The symptoms are aggravated by nothing. The symptoms are alleviated by nothing. Associated signs and symptoms: Pertinent positives: SOB. Severity of symptoms: At their worst the symptoms were mild in the emergency department the symptoms have resolved. The patient has not experienced similar symptoms in the past. The patient has not recently seen a physician. 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 - Social history:: Smoking status: Patient uses tobacco products, smokes one-half pack cigarettes per day, Patient uses alcohol, occasionally. - Ebola Screening: : Patient negative for fever greater than or equal to 101.5 degrees Fahrenheit, and additional compatible Ebola Virus Disease symptoms Patient denies exposure to infectious person Patient denies travel to an Ebola-affected area in the 21 days before illness onset No symptoms or risks identified at this time. ROS: 12:49 Eyes: Negative for injury, pain, redness, and discharge, ENT: Negative for injury, jr8 pain, and discharge, Neck: Negative for injury, pain, and swelling, Abdomen/GI: Negative for abdominal pain, nausea, vomiting, diarrhea, and constipation, Back: Negative for injury and pain, MS/Extremity: Negative for injury and deformity, Skin: Negative for injury, rash, and discoloration, Neuro: Negative for headache, weakness, numbness, tingling, and seizure. 12:49 Cardiovascular: Positive for palpitations, Negative for chest pain, edema, orthopnea, paroxysmal nocturnal dyspnea. 12:49 Respiratory: Positive for shortness of breath. Exam: 12:49 Eyes: Pupils equal round and reactive to light, extra-ocular motions intact. Lids and jr8 lashes normal. Conjunctiva and sclera are non-icteric and not injected. Cornea within normal limits. Periorbital areas with no swelling, redness, or edema. ENT: Nares patent. No nasal discharge, no septal abnormalities noted. Tympanic membranes are normal and external auditory canals are clear. Oropharynx with no redness, swelling, or masses, exudates, or evidence of obstruction, uvula midline. Mucous membranes moist. Neck: Trachea midline, no thyromegaly or masses palpated, and no cervical lymphadenopathy. Supple, full range of motion without nuchal rigidity, or vertebral point tenderness. No Meningismus. Cardiovascular: Regular rate and rhythm with a normal S1 and S2. No gallops, murmurs, or rubs. Normal PMI, no JVD. No pulse deficits. Respiratory: Lungs have equal breath sounds bilaterally, clear to auscultation and percussion. No rales, rhonchi or wheezes noted. No increased work of breathing, no retractions or nasal flaring. Abdomen/GI: Soft, non-tender, with normal bowel sounds. No distension or tympany. No guarding or rebound. No evidence of tenderness throughout. Back: No spinal tenderness. No costovertebral tenderness. Full range of motion. Skin: Warm, dry with normal turgor. Normal color with no rashes, no lesions, and no evidence of cellulitis. MS/ Extremity: Pulses equal, no cyanosis. Neurovascular intact. Full, normal range of motion. Neuro: Awake and alert, GCS 15, oriented to person, place, time, and situation. Cranial nerves II-XII grossly intact. Motor strength 5/5 in all extremities. Sensory grossly intact. Cerebellar exam normal. Normal gait. Vital Signs: 11:25 BP 127 / 92; Pulse 86; Resp 16; Temp 98.6; Pulse Ox 100% on R/A; Weight 136.08 kg; aj Height 5 ft. 6 in. (167.64 cm); 12:31 BP 133 / 74; Pulse 86; Resp 14; Pulse Ox 100% on R/A; mt 13:08 BP 139 / 88; Pulse 61; Resp 20 S; Pulse Ox 100% on R/A; Pain 0/10; aa5 11:25 Body Mass Index 48.42 (136.08 kg, 167.64 cm) aj MDM: 11:44 Patient medically screened. [facility] 13:31 Data reviewed: vital signs, nurses notes, lab test result(s), EKG, radiologic studies, [facility] plain films, and as a result, I will discharge patient. Data interpreted: Pulse oximetry: on room air is 100 %. Interpretation: normal. Counseling: I had a detailed discussion with the patient and/or guardian regarding: the historical points, exam findings, and any diagnostic results supporting the discharge/admit diagnosis, lab results, radiology results, the need for outpatient follow up, a family practitioner, to return to the emergency department if symptoms worsen or persist or if there are any questions or concerns that arise at home. ED course: Patient still with complete resolution of symptoms. History of anemia. Addressed with patient that she needs to start on iron supplementation and to f/u with PCP . 01/25 12:03 Order name: Basic Metabolic Panel; Complete Time: 12:01/25 12:03 Order name: CBC with Diff 01/25 12:03 Order name: LFT's; Complete Time: 12: [facility] 01/25 12:03 Order name: Magnesium; Complete Time: 12:01/25 12:03 Order name: NT PRO-BNP; Complete Time: 12: 01/25 12:03 Order name: PT-INR; Complete Time: 12:47 01/25 12:03 Order name: Troponin (emerg Dept Use Only); Complete Time: 12:56 01/25 12:03 Order name: XRAY Chest (1 view); Complete Time: 14:01 01/25 12:03 Order name: EKG; Complete Time: 12:04 [facility] 01/25 12:03 Order name: Cardiac monitoring; Complete Time: 12:04 01/25 12:03 Order name: EKG - Nurse/Tech; Complete Time: 12:04 01/25 12:03 Order name: IV Saline Lock; Complete Time: 12:14 01/25 12:03 Order name: Labs collected and sent; Complete Time: 12:14 jr8 01/25 13:01 Order name: Manual Differential EDMS 01/25 12:03 Order name: O2 Per Protocol; Complete Time: 12:04 jr8 01/25 12:03 Order name: O2 Sat Monitoring; Complete Time: 12:05 8 Administered Medications: No medications were administered Disposition: 01/26 06:38 Co-signature as Attending Physician, Tavon Valverde MD I agree with the assessment and manav plan of care. Disposition: 01/25/18 13:35 Discharged to Home. Impression: Chest pain, unspecified, Palpitations, Anemia in chronic diseases classified elsewhere. - Condition is Stable. - Discharge Instructions: Nonspecific Chest Pain, Palpitations, Iron Deficiency Anemia, Adult, [id number]. - Prescriptions for Ferrous Sulfate 325 mg (65 mg Iron) Oral Tablet - take 1 tablet by ORAL route every 8 hours; 90 tablet. - Work release form, Medication Reconciliation Form, Thank You Letter, Antibiotic Education, Prescription Opioid Use form. - Follow up: Private Physician; When: 5 - 6 days; Reason: Recheck today's complaints, Continuance of care, Re-evaluation by your physician. - Problem is new. - Symptoms are resolved. Signatures: Dispatcher [employer] [facility] Mary Crowe RN RN aj Anderson, Corey, MD MD cha Calderon, Audri, RN RN aa5 Chris Pitts PA PA jr8 Corrections: (The following items were deleted from the chart) 01/25 14:15 12:03 Urine Dipstick-Ancillary ordered. jr8 aa5 14:15 13:35 01/25/2018 13:35 Discharged to Home. Impression: Chest pain, unspecified; aa5 Palpitations; Anemia in chronic diseases classified elsewhere. Condition is Stable. Forms are Medication Reconciliation Form, Thank You Letter, Antibiotic Education, Prescription Opioid Use. Follow up: Private Physician; When: 5 - 6 days; Reason: Recheck today's complaints, Continuance of care, Re-evaluation by your physician. Problem is new. Symptoms are resolved. jr8
--- NOTE | 2018-01-25 13:36 | ER ---
Nurse's Notes [facility] Name: Cindy Gomez Age: 27 yrs Sex: Female : 1990 Arrival Date: 01/25/2018 Time: 11:20 Bed 6 Private MD: None, None Diagnosis: Chest pain, unspecified;Palpitations;Anemia in chronic diseases classified elsewhere Presentation: 01/25 11:24 Presenting complaint: Patient states: Reports chest pain with deep breathing that aj started this morning. Transition of care: patient was not received from another setting of care. Onset of symptoms was January 25, 2018. Risk Assessment: Do you want to hurt yourself or someone else? Patient reports no desire to harm self or others. Initial Sepsis Screen: Does the patient meet any 2 criteria? No. Patient's initial sepsis screen is negative. Does the patient have a suspected source of infection? No. Patient's initial sepsis screen is negative. Care prior to arrival: None. 11:24 Method Of Arrival: Wheelchair 11:24 Acuity: AUDREY 3 aj Triage Assessment: 11:25 General: Appears in no apparent distress. comfortable, Behavior is calm, cooperative, aj appropriate for age. Pain: Denies pain. Neuro: Level of Consciousness is awake, alert, obeys commands, Oriented to person, place, time, situation, Appropriate for age. Cardiovascular: Capillary refill < 3 seconds in bilateral fingers Patient's skin is warm and dry. Respiratory: Reports pain with respiration Airway is patent Respiratory effort is even, unlabored, Respiratory pattern is regular, symmetrical. Derm: Skin is intact, is healthy with good turgor, Skin is pink, warm \T\ dry. normal. 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 - Social history:: Smoking status: Patient uses tobacco products, smokes one-half pack cigarettes per day, Patient uses alcohol, occasionally. - Ebola Screening: : Patient negative for fever greater than or equal to 101.5 degrees Fahrenheit, and additional compatible Ebola Virus Disease symptoms Patient denies exposure to infectious person Patient denies travel to an Ebola-affected area in the 21 days before illness onset No symptoms or risks identified at this time. Screenin:20 Abuse screen: Denies threats or abuse. Nutritional screening: No deficits noted. aa5 Tuberculosis screening: No symptoms or risk factors identified. Fall Risk None identified. Assessment: 12:20 General: Appears comfortable, Behavior is calm, cooperative. Pain: Denies pain. Neuro: aa5 Level of Consciousness is awake, alert, obeys commands, Oriented to person, place, time, situation. 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 Pt denies any more episodes since then, denies any pain at this time. Heart tones S1 S2 present Rhythm is regular. Respiratory: Airway is patent Respiratory effort is even, unlabored, Respiratory pattern is regular, symmetrical, Breath sounds are clear bilaterally. Denies cough, shortness of breath. GI: No signs and/or symptoms were reported involving the gastrointestinal system. : No signs and/or symptoms were reported regarding the genitourinary system. EENT: No signs and/or symptoms were reported regarding the EENT system. Derm: Skin is dry, Skin is normal, Skin temperature is warm. Musculoskeletal: Range of motion: intact in all extremities. 14:14 Reassessment: Patient denies pain at this time. aa5 14:14 Neuro: Level of Consciousness is awake, alert, obeys commands, Oriented to person, aa5 place, time, situation. Respiratory: Airway is patent Respiratory effort is even, unlabored, Respiratory pattern is regular, symmetrical. Derm: Skin is dry, Skin is normal, Skin temperature is warm. Vital Signs: 11:25 BP 127 / 92; Pulse 86; Resp 16; Temp 98.6; Pulse Ox 100% on R/A; Weight 136.08 kg; aj Height 5 ft. 6 in. (167.64 cm); 12:31 BP 133 / 74; Pulse 86; Resp 14; Pulse Ox 100% on R/A; mt 13:08 BP 139 / 88; Pulse 61; Resp 20 S; Pulse Ox 100% on R/A; Pain 0/10; aa5 11:25 Body Mass Index 48.42 (136.08 kg, 167.64 cm) ED Course: 11:20 Patient arrived in ED. mr 11:20 None, None is Private Physician. mr 11:25 Triage completed. aj 11:27 Arm band placed on left wrist. aj 11:41 EKG done, by ED staff, reviewed by Tavon Valverde MD. mt 11:44 Chris Pitts PA is PHCP. jr8 11:44 Tavon Valverde MD is Attending Physician. jr8 11:57 Brenda Chaudhari, RN is Primary Nurse. aa5 12:14 Inserted saline lock: 20 gauge in right antecubital area, using aseptic technique. mt Blood collected. 12:20 Patient has correct armband on for positive identification. Bed in low position. Call aa5 light in reach. Side rails up X2. lunchroom monitor on. Pulse ox on. NIBP on. 12:58 X-ray completed. Portable x-ray completed in exam room. Patient tolerated procedure jb2 well. 13:02 XRAY Chest (1 view) In Process Unspecified. EDMS 13:08 No provider procedures requiring assistance completed. Patient maintains SpO2 aa5 saturation greater than 95% on room air. 14:14 IV discontinued, intact, bleeding controlled, No redness/swelling at site. Pressure aa5 dressing applied. Administered Medications: No medications were administered Outcome: 13:35 Discharge ordered by . jr8 14:14 Discharged to home ambulatory. aa5 14:14 Condition: good 14:14 Discharge instructions given to patient, Instructed on discharge instructions, follow up and referral plans. medication usage, Demonstrated understanding of instructions, follow-up care, medications, Prescriptions given X 1. 14:15 Patient left the ED. aa5 Signatures: Dispatcher [employer] [facility] Mary Crowe RN RN aj Rivera, Maria Roger Buckner jb2 Brenda Chaudhari, RN RN aaChris Gómez PA PA jrTanna Mckinnon mn Corrections: (The following items were deleted from the chart) 11:27 11:25 Arm band placed on left wrist. Patient placed in an exam room, aj 14:30 14:15 Neuro: Level of Consciousness is awake, alert, obeys commands, Oriented to aa5 person, place, time, situation, aa5 14:30 14:15 Respiratory: Airway is patent Respiratory effort is even, unlabored, Respiratory aa5 pattern is regular, symmetrical, aa5 14:30 14:15 Derm: Skin is dry, Skin is normal, Skin temperature is warm aa5 aa5 14:15 Reassessment: Patient denies pain at this time. aa5 aa5
--- NOTE | 2018-01-25 13:59 | RAD REPORT ---
EXAM DESCRIPTION: RAD - Chest Single View - 01/25/2018 1:01 pm CLINICAL HISTORY: Chest pain COMPARISON: None. TECHNIQUE: AP portable chest image was obtained 1247 hours . FINDINGS: Lungs are clear. Heart size is upper normal. No vascular engorgement. No measurable pleura l effusion and no pneumothorax. No gross bony abnormality seen. No acute aortic findings suspected. IMPRESSION: No acute cardiopulmonary process.
[2018-01-25 14:40] LABS: Anisocytosis 1+; Blood Morphology Comment NOTED (NOT SEEN); Hypochromasia 3+; Platelet Estimate INCR
== END 2018-01-25 14:15 | disposition home or self-care (01) ==
LOC: ER 11:18
DX: R07.9 Chest pain, unspecified (principal); F17.210 Nicotine dependence, cigarettes, uncomplicated; D63.8 Anemia in other chronic diseases classified elsewhere; R00.2 Palpitations
CPT/HCPCS: 36415; 71045; 80048; 80076; 83735; 83880; 84484; 85025; 85610; 93005; 99285

== ENCOUNTER 2018-04-11 06:48 | Emergency (ER) | payer SELFPAY ==
--- NOTE | 2018-04-11 07:12 | EDPHYS ---
Physician Documentation [facility] Name: Cindy Gomez Age: 27 yrs Sex: Female : 1990 Arrival Date: 04/11/2018 Time: 06:51 Bed 20 Private MD: ED Physician Tavon Valverde HPI: 04/11 07:10 This 27 yrs old Black Female presents to ER via Ambulatory with complaints of Dental pm1 Abscess. 07:12 The patient presents with pain, swelling. The problem is located in the lower left pm1 first molar. Onset: The symptoms/episode began/occurred yesterday. Duration: The symptoms are continuous. Modifying factors: The symptoms are alleviated by nothing, the symptoms are aggravated by nothing. Associated signs and symptoms: Pertinent positives: pain, swelling, Pertinent negatives: fever, inability to eat. Severity of symptoms: in the emergency department the symptoms are actually worse. The patient has experienced similar episodes in the past, multiple times. The patient has not recently seen a physician. 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 - Social history:: Smoking status: Patient uses tobacco products, 2-3 cigs daily. - Ebola Screening: : No symptoms or risks identified at this time. ROS: 07:12 Constitutional: Negative for fever, chills, and weight loss, Eyes: Negative for injury, pm1 pain, redness, and discharge. 07:12 Neck: Negative for injury, pain, and swelling, Cardiovascular: Negative for chest pain, palpitations, and edema, Respiratory: Negative for shortness of breath, cough, wheezing, and pleuritic chest pain, Abdomen/GI: Negative for abdominal pain, nausea, vomiting, diarrhea, and constipation, Back: Negative for injury and pain, MS/Extremity: Negative for injury and deformity, Skin: Negative for injury, rash, and discoloration, Neuro: Negative for headache, weakness, numbness, tingling, and seizure. 07:12 ENT: Positive for dental pain, Negative for ear pain, sore throat, difficulty swallowing, difficulty handling secretions, hoarseness. Exam: 07:12 Constitutional: This is a well developed, well nourished patient who is awake, alert, pm1 and in no acute distress. Head/Face: Normocephalic, atraumatic. Eyes: Pupils equal round and reactive to light, extra-ocular motions intact. Lids and lashes normal. Conjunctiva and sclera are non-icteric and not injected. Cornea within normal limits. Periorbital areas with no swelling, redness, or edema. 07:12 Neck: Trachea midline, no thyromegaly or masses palpated, and no cervical lymphadenopathy. Supple, full range of motion without nuchal rigidity, or vertebral point tenderness. No Meningismus. Chest/axilla: Normal chest wall appearance and motion. Nontender with no deformity. No lesions are appreciated. Cardiovascular: Regular rate and rhythm with a normal S1 and S2. No gallops, murmurs, or rubs. Normal PMI, no JVD. No pulse deficits. Respiratory: Lungs have equal breath sounds bilaterally, clear to auscultation and percussion. No rales, rhonchi or wheezes noted. No increased work of breathing, no retractions or nasal flaring. Abdomen/GI: Soft, non-tender, with normal bowel sounds. No distension or tympany. No guarding or rebound. No evidence of tenderness throughout. Back: No spinal tenderness. No costovertebral tenderness. Full range of motion. Skin: Warm, dry with normal turgor. Normal color with no rashes, no lesions, and no evidence of cellulitis. MS/ Extremity: Pulses equal, no cyanosis. Neurovascular intact. Full, normal range of motion. 07:12 ENT: External ear(s): are unremarkable, Ear canal(s): are normal, TM's: are normal, Nose: is normal, Mouth: is normal, (-) trismus no lip abnormalities, no mucosal abnormalities, no tongue abnormalities, Dental exam: dental caries, diffusely, gum swelling, that is mild, specifically in the lower left first molar, pain, specifically in the lower left first molar. 07:12 Neuro: Orientation: is normal, Motor: moves all fours. Vital Signs: 07:01 BP 155 / 95; Pulse 73; Resp 18; Temp 98.1; Pulse Ox 100% ; Weight 136.08 kg; Height 5 sv ft. 6 in. (167.64 cm); Pain 8/; 07:01 Body Mass Index 48.42 (136.08 kg, 167.64 cm) sv MDM: 07:03 Patient medically screened. pm1 07:10 Data reviewed: vital signs. Data interpreted: Pulse oximetry: on room air is 100 %. pm1 Interpretation: normal. Counseling: I had a detailed discussion with the patient and/or guardian regarding: the historical points, exam findings, and any diagnostic results supporting the discharge/admit diagnosis, the need for outpatient follow up, for definitive care, a dentist, to return to the emergency department if symptoms worsen or persist or if there are any questions or concerns that arise at home. Administered Medications: 07:20 Drug: TORadol 60 mg Route: IM; Site: left gluteus; sv 07:39 Follow up: Response: No adverse reaction sv 07:20 Drug: Clindamycin 600 mg Route: IM; Site: left gluteus; sv 07:38 Follow up: Response: No adverse reaction sv Disposition: 09:20 Co-signature as Attending Physician, Tavon Valverde MD I agree with the assessment and manav plan of care. Disposition: 04/11/18 07:11 Discharged to Home. Impression: Periapical abscess without sinus. - Condition is Stable. - Discharge Instructions: Dental Abscess, Dental Pain, Diet and Dental Disease. - Prescriptions for Clindamycin HCl 300 mg Oral Capsule - take 1 capsule by ORAL route every 6 hours for 10 days; 40 capsule. Tylenol- Codeine #3 300-30 mg Oral Tablet - take 2 tablets by ORAL route every 6 hours As needed; 20 tablet. - Work release form, Medication Reconciliation Form, Thank You Letter, Antibiotic Education, Prescription Opioid Use form. - Follow up: Emergency Department; When: As needed; Reason: Worsening of condition. Follow up: Private Physician; When: 2 - 3 days; Reason: Recheck today's complaints, Continuance of care, Re-evaluation by your physician. - Problem is new. - Symptoms have improved. Signatures: Cinthya Laura RN RN sv Anderson, Corey, MD MD cha Marinas, Patrick, STATION ENGINEER STATION ENGINEER pm1 Corrections: (The following items were deleted from the chart) 07:40 07:11 04/11/2018 07:11 Discharged to Home. Impression: Periapical abscess without sv sinus. Condition is Stable. Forms are Medication Reconciliation Form, Thank You Letter, Antibiotic Education, Prescription Opioid Use. Follow up: Emergency Department; When: As needed; Reason: Worsening of condition. Follow up: Private Physician; When: 2 - 3 days; Reason: Recheck today's complaints, Continuance of care, Re-evaluation by your physician. Problem is new. Symptoms have improved. pm1
--- NOTE | 2018-04-11 07:12 | ER ---
Nurse's Notes [facility] Name: Cindy Gomez Age: 27 yrs Sex: Female : 1990 Arrival Date: 04/11/2018 Time: 06:51 Bed 20 Private MD: Diagnosis: Periapical abscess without sinus Presentation: 04/11 07:01 Presenting complaint: Patient states: left lower dental abscess started last night with sv drainage. Pt took Motrin at 2300 last night. Transition of care: patient was not received from another setting of care. Onset of symptoms was April 10, 2018. Risk Assessment: Do you want to hurt yourself or someone else? Patient reports no desire to harm self or others. Initial Sepsis Screen: Does the patient meet any 2 criteria? No. Patient's initial sepsis screen is negative. Does the patient have a suspected source of infection? No. Patient's initial sepsis screen is negative. Care prior to arrival: Medication(s) given: Motrin. 07:01 Method Of Arrival: Ambulatory sv 07:01 Acuity: AUDREY 4 sv Triage Assessment: 07:01 General: Appears in no apparent distress. uncomfortable, obese, well developed, sv Behavior is calm, cooperative, appropriate for age. Pain: Complains of pain in lower left second molar and lower left first molar Pain currently is 8 out of 10 on a pain scale. Pain began 1 day ago. Is continuous. EENT: No signs and/or symptoms were reported regarding the EENT system. Neuro: Level of Consciousness is awake, alert, obeys commands, Oriented to person, place, time, situation, Moves all extremities. Full function Gait is steady, Speech is normal. Respiratory: Respiratory effort is even, unlabored, Respiratory pattern is regular, symmetrical. Derm: Skin is pink, warm \T\ dry. 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 - Social history:: Smoking status: Patient uses tobacco products, 2-3 cigs daily. - Ebola Screening: : No symptoms or risks identified at this time. Screenin:08 Abuse screen: Denies threats or abuse. Denies injuries from another. Nutritional sv screening: No deficits noted. Tuberculosis screening: Fall Risk None identified. Assessment: 07:09 Reassessment: Patient appears in no apparent distress at this time. No changes from sv previously documented assessment. 07:39 Reassessment: Patient appears in no apparent distress at this time. No changes from sv previously documented assessment. Patient and/or family updated on plan of care and expected duration. Pain level reassessed. Patient is alert, oriented x 3, equal unlabored respirations, skin warm/dry/pink. Vital Signs: 07:01 BP 155 / 95; Pulse 73; Resp 18; Temp 98.1; Pulse Ox 100% ; Weight 136.08 kg; Height 5 sv ft. 6 in. (167.64 cm); Pain 8/10; 07:01 Body Mass Index 48.42 (136.08 kg, 167.64 cm) sv ED Course: 06:51 Patient arrived in ED. ds1 07:00 Cinthya Laura RN is Primary Nurse. sv 07:01 Arm band placed on right wrist. sv 07:03 Marco Antonio Gallardo NP is PHCP. pm1 07:03 Tavon Valverde MD is Attending Physician. pm1 07:06 Triage completed. sv 07:08 Patient has correct armband on for positive identification. Bed in low position. Door sv closed. Head of bed elevated. 07:39 No provider procedures requiring assistance completed. Patient did not have IV access sv during this emergency room visit. Administered Medications: 07:20 Drug: TORadol 60 mg Route: IM; Site: left gluteus; sv 07:39 Follow up: Response: No adverse reaction sv 07:20 Drug: Clindamycin 600 mg Route: IM; Site: left gluteus; sv 07:38 Follow up: Response: No adverse reaction sv Outcome: 07:11 Discharge ordered by MD. pm1 07:39 Discharged to home ambulatory. sv 07:39 Condition: stable 07:39 Discharge instructions given to patient, Instructed on discharge instructions, follow up and referral plans. no drinking with medication, no driving heavy equipment, medication usage, Demonstrated understanding of instructions, follow-up care, medications, Prescriptions given X 2. 07:40 Patient left the ED. sv Signatures: Cinthya Laura RN RN sv Forrester, Ute ds1 Marinas, Marco Antonio, AUTOMATIC DRILLER AND REAMER AUTOMATIC DRILLER [employer] REAMER pm1
[2018-04-11] MEDS ORDERED: KETOROLAC 30 MG/ML INJ ONE (07:17)
[2018-04-11] MEDS ORDERED: CLINDAMYCIN IV 150 MG/ML (4 mL) VIAL ONE (07:19)
== END 2018-04-11 07:40 | disposition home or self-care (01) ==
LOC: ER 06:48
DX: K04.7 Periapical abscess without sinus (principal); F17.210 Nicotine dependence, cigarettes, uncomplicated
CPT/HCPCS: 96372; 99283; S0077

== ENCOUNTER 2018-07-22 10:35 | Emergency (ER) | payer SELFPAY ==
--- NOTE | 2018-07-22 11:56 | EDPHYS ---
Physician Documentation [facility] Name: Cindy Gomez Age: 28 yrs Sex: Female : 1990 Arrival Date: 07/22/2018 Time: 10:37 Bed 17 Private MD: None, None ED Physician Nolan Reyes HPI: 07/22 12:02 This 28 yrs old Black Female presents to ER via Ambulatory with complaints of Sore snw Throat. 12:02 The patient presents with sore throat. The patient describes throat pain as raw. Onset: snw The symptoms/episode began/occurred suddenly, 3 day(s) ago, and became persistent. Severity of symptoms: At their worst the symptoms were moderate. Associated signs and symptoms: Pertinent positives: cough, flu-like symptoms, malaise, Sore throat. The patient has not experienced similar symptoms in the past. The patient has not recently seen a physician. 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 - Social history:: Smoking status: Patient/guardian denies using tobacco. - Ebola Screening: : No symptoms or risks identified at this time. ROS: 12:01 Constitutional: Negative for fever, chills, and weight loss, Eyes: Negative for injury, snw pain, redness, and discharge, ENT: Negative for injury and discharge, positive for sore throat Neck: Negative for injury, pain, and swelling, Cardiovascular: Negative for chest pain, palpitations, and edema, Abdomen/GI: Negative for abdominal pain, nausea, vomiting, diarrhea, and constipation, Back: Negative for injury and pain, : Negative for injury, bleeding, discharge, and swelling, MS/Extremity: Negative for injury and deformity, Skin: Negative for injury, rash, and discoloration, Neuro: Negative for headache, weakness, numbness, tingling, and seizure. 12:01 Respiratory: Positive for cough, with green sputum. Exam: 11:59 Constitutional: This is a well developed, well nourished patient who is awake, alert, snw and in no acute distress. Head/Face: Normocephalic, atraumatic. Eyes: Pupils equal round and reactive to light, extra-ocular motions intact. Lids and lashes normal. Conjunctiva and sclera are non-icteric and not injected. Cornea within normal limits. Periorbital areas with no swelling, redness, or edema. 11:59 Neck: Trachea midline, no thyromegaly or masses palpated, and no cervical lymphadenopathy. Supple, full range of motion without nuchal rigidity, or vertebral point tenderness. No Meningismus. Chest/axilla: Normal chest wall appearance and motion. Nontender with no deformity. No lesions are appreciated. Cardiovascular: Regular rate and rhythm with a normal S1 and S2. No gallops, murmurs, or rubs. Normal PMI, no JVD. No pulse deficits. Abdomen/GI: Soft, non-tender, with normal bowel sounds. No distension or tympany. No guarding or rebound. No evidence of tenderness throughout. Back: No spinal tenderness. No costovertebral tenderness. Full range of motion. Skin: Warm, dry with normal turgor. Normal color with no rashes, no lesions, and no evidence of cellulitis. MS/ Extremity: Pulses equal, no cyanosis. Neurovascular intact. Full, normal range of motion. Neuro: Awake and alert, GCS 15, oriented to person, place, time, and situation. Cranial nerves II-XII grossly intact. Motor strength 5/5 in all extremities. Sensory grossly intact. Cerebellar exam normal. Normal gait. 11:59 ENT: TM's: erythema, that is mild, that is moderate, on the left, Examination of the other ear shows no obvious abnormality, Nose: Nasal mucosa: edematous, Mouth: is normal, Posterior pharynx: Tonsils: bilaterally enlarged, with erythema, with exudate, Voice: is hoarse. 11:59 Respiratory: the patient does not display signs of respiratory distress, Respirations: shallow respirations, Breath sounds: are clear throughout, green productive cough. Vital Signs: 11:00 BP 151 / 93; Pulse 88; Resp 16; Temp 97.9; Pulse Ox 100% on R/A; Pain 8/10; hb 12:24 BP 147 / 88; Pulse 85; Resp 17; Pulse Ox 100% on R/A; aj MDM: 11:09 Patient medically screened. snw 12:01 Data reviewed: vital signs, nurses notes. Data interpreted: Pulse oximetry: on room air snw is 100 %. Interpretation: normal. Counseling: I had a detailed discussion with the patient and/or guardian regarding: the historical points, exam findings, and any diagnostic results supporting the discharge/admit diagnosis, the presence of at least one elevated blood pressure reading (>120/80) during this emergency department visit, the need for outpatient follow up, to return to the emergency department if symptoms worsen or persist or if there are any questions or concerns that arise at home. Special discussion: I have referred the patient to see his PCP for further evaluation of high blood pressure. Based on the history and exam findings, there is no indication for further emergent testing or inpatient evaluation. I discussed with the patient/guardian the need to see the primary care provider for further evaluation of the symptoms. 07/22 10:47 Order name: Strep; Complete Time: 11:30 snw 07/22 10:47 Order name: Flu; Complete Time: 11:31 snw 07/22 11:28 Order name: Throat Culture EDMS Administered Medications: 12:17 Drug: predniSONE 60 mg Route: PO; aj 12:25 Follow up: Response: No adverse reaction aj 12:17 Drug: Pepcid 20 mg Route: PO; aj 12:25 Follow up: Response: No adverse reaction aj 12:17 Drug: Augmentin 875 mg Route: PO; aj 12:26 Follow up: Response: No adverse reaction aj Disposition: 18:47 Co-signature as Attending Physician, Nolan Reyes MD Available for consultation at ps1 all times . Disposition: 07/22/18 11:55 Discharged to Home. Impression: Acute serous otitis media, left ear, Bronchitis, not specified as acute or chronic. - Condition is Stable. - Discharge Instructions: Acute Bronchitis, Adult, Fever, Adult, Hypertension, Cool Mist Vaporizer, Cough, Adult, Rehydration, Adult. - Prescriptions for Augmentin 875- 125 mg Oral Tablet - take 1 tablet by ORAL route every 12 hours for 10 days; 20 tablet. Vitamin 27- 0.8 mg Oral Tablet - take 1 tablet by ORAL route once daily; 30 tablet. Prednisone 20 mg Oral Tablet - take 2 tablet by ORAL route once daily for 5 days; 10 tablet. Pepcid 20 mg Oral Tablet - take 1 tablet by ORAL route once daily; 20 tablet. - Work release form, Medication Reconciliation Form, Thank You Letter, Antibiotic Education, Prescription Opioid Use form. - Follow up: Private Physician; When: 2 - 3 days; Reason: Recheck today's complaints, Continuance of care, Re-evaluation by your physician. Follow up: Emergency Department; When: As needed; Reason: Worsening of condition. Signatures: Dispatcher [employer] EDMary Simpson RN RN Adriana Hughes, COUPON MANIFEST CLERK-C COUPON MANIFEST CLERK-Csnw Britt Brown RN RN Nolan Reyes MD MD ps1 Corrections: (The following items were deleted from the chart) 12:27 11:55 07/22/2018 11:55 Discharged to Home. Impression: Acute serous otitis media, left aj ear; Bronchitis, not specified as acute or chronic. Condition is Stable. Forms are Medication Reconciliation Form, Thank You Letter, Antibiotic Education, Prescription Opioid Use. Follow up: Private Physician; When: 2 - 3 days; Reason: Recheck today's complaints, Continuance of care, Re-evaluation by your physician. Follow up: Emergency Department; When: As needed; Reason: Worsening of condition. snw
--- NOTE | 2018-07-22 11:56 | ER ---
Nurse's Notes [facility] Name: Cindy Gomez Age: 28 yrs Sex: Female : 1990 Arrival Date: 07/22/2018 Time: 10:37 Bed 17 Private MD: None, None Diagnosis: Acute serous otitis media, left ear;Bronchitis, not specified as acute or chronic Presentation: 07/22 11:00 Presenting complaint: Patient states: Sinus congestion, nonproductive cough, and sore hb throat x 3 days. Transition of care: patient was not received from another setting of care. Onset of symptoms was July 20, 2018. Risk Assessment: Do you want to hurt yourself or someone else? Patient reports no desire to harm self or others. Initial Sepsis Screen: Does the patient meet any 2 criteria? No. Patient's initial sepsis screen is negative. Does the patient have a suspected source of infection? No. Patient's initial sepsis screen is negative. Care prior to arrival: None. 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 - Social history:: Smoking status: Patient/guardian denies using tobacco. - Ebola Screening: : No symptoms or risks identified at this time. Screenin:02 Abuse screen: Denies threats or abuse. Denies injuries from another. Nutritional hb screening: No deficits noted. Tuberculosis screening: No symptoms or risk factors identified. Fall Risk None identified. Assessment: 11:17 General: Appears in no apparent distress. comfortable, Behavior is calm, cooperative, aj appropriate for age. Pain: Denies pain. Neuro: Level of Consciousness is awake, alert, obeys commands, Oriented to person, place, time, situation, Appropriate for age. Respiratory: Airway is patent Respiratory effort is even, unlabored, Respiratory pattern is regular, symmetrical, Breath sounds are clear bilaterally. EENT: Throat is reddened Reports pain when swallowing. Derm: Skin is intact, is healthy with good turgor, Skin is pink, warm \T\ dry. normal. Vital Signs: 11:00 BP 151 / 93; Pulse 88; Resp 16; Temp 97.9; Pulse Ox 100% on R/A; Pain 8/10; hb 12:24 BP 147 / 88; Pulse 85; Resp 17; Pulse Ox 100% on R/A; aj ED Course: 10:37 Patient arrived in ED. mr 10:38 None, None is Private Physician. mr 10:47 Adri[facility] Landon [facility]C [facility] snw 10:47 Nolan Reyes MD is Attending Physician. snw 11:01 Triage completed. hb 11:02 Arm band placed on right wrist. hb 11:04 Flu Sent. hb 11:04 Strep Sent. hb 11:15 Flu Sent. mh5 11:15 Strep Sent. mh5 11:15 Flu and/or RSV swab sent to lab. Strep swab sent to lab. [facility] 11:17 Mary Crowe, RN is Primary Nurse. aj 11:17 Patient has correct armband on for positive identification. aj 12:24 No provider procedures requiring assistance completed. Patient did not have IV access aj during this emergency room visit. Administered Medications: 12:17 Drug: predniSONE 60 mg Route: PO; aj 12:25 Follow up: Response: No adverse reaction aj 12:17 Drug: Pepcid 20 mg Route: PO; aj 12:25 Follow up: Response: No adverse reaction aj 12:17 Drug: Augmentin 875 mg Route: PO; aj 12:26 Follow up: Response: No adverse reaction aj Outcome: 11:55 Discharge ordered by MD. snw 12:24 Discharged to home ambulatory. aj 12:24 Condition: good 12:24 Discharge instructions given to patient, Instructed on discharge instructions, follow up and referral plans. Demonstrated understanding of instructions, follow-up care, medications, Prescriptions given X 4. 12:27 Patient left the ED. aj Signatures: Mary Crowe, RN Adriana Mcduffie FNP-C FNP-Bruce [facility] [place] Britt Brown, Gris Land RN [facility]
[2018-07-22] MEDS ORDERED: FAMOTIDINE 20 MG TAB ONE (12:22)
[2018-07-22] MEDS ORDERED: predniSONE 20 MG TAB ONE (12:22)
[2018-07-22] MEDS ORDERED: AMOX/K CLAV 875 MG TAB ONE (12:22)
== END 2018-07-22 12:27 | disposition home or self-care (01) ==
LOC: ER 10:35
DX: H65.02 Acute serous otitis media, left ear (principal); J40 Bronchitis, not specified as acute or chronic
CPT/HCPCS: 87070; 87081; 87804; 99283; J7512

== ENCOUNTER 2018-09-03 06:48 | Emergency (ER) | payer SELFPAY ==
[2018-09-03] MEDS ORDERED: AMOX/K CLAV 875 MG TAB ONE (07:57)
[2018-09-03] MEDS ORDERED: HYDROCODONE/APAP 10/325 TAB ONE (07:57)
--- NOTE | 2018-09-03 08:14 | EDPHYS ---
Physician Documentation [facility] Name: Cindy Gomez Age: 28 yrs Sex: Female : 1990 Arrival Date: 09/03/2018 Time: 06:50 Bed 7 Private MD: ED Physician Tavon Valverde HPI: 09/03 07:43 This 28 yrs old Black Female presents to ER via Ambulatory with complaints of Headache, manav light sensitivity. 07:43 The patient complains of pain to the forehead, right eye, right cheek and right ear. manav The patient describes the headache as a pressure. Onset: The symptoms/episode began/occurred this morning, today. Associated signs and symptoms: Pertinent positives: Photophobia right maxillary pain, fx 2nd molar upper right. Severity of symptoms: At its worst the pain was moderate, in the emergency department the pain is unchanged. Headache History: The patient has had previous headaches and this one is similar to previous episodes. The symptoms are alleviated by remaining still, the symptoms are aggravated by lights, movement, chewing. The patient has not experienced similar symptoms in the past. 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 - Social history:: Smoking status: Patient uses tobacco products, smokes one-half pack cigarettes per day. - Ebola Screening: : Patient negative for fever greater than or equal to 101.5 degrees Fahrenheit, and additional compatible Ebola Virus Disease symptoms Patient denies exposure to infectious person Patient denies travel to an Ebola-affected area in the 21 days before illness onset No symptoms or risks identified at this time. - Family history:: not pertinent. ROS: 07:43 Constitutional: Negative for fever, chills, and weight loss, Eyes: Negative for injury, manav pain, redness, and discharge, Neck: Negative for injury, pain, and swelling, Cardiovascular: Negative for chest pain, palpitations, and edema, Respiratory: Negative for shortness of breath, cough, wheezing, and pleuritic chest pain, Abdomen/GI: Negative for abdominal pain, nausea, vomiting, diarrhea, and constipation, Back: Negative for injury and pain, : Negative for injury, bleeding, discharge, and swelling, MS/Extremity: Negative for injury and deformity, Skin: Negative for injury, rash, and discoloration, Neuro: Negative for headache, weakness, numbness, tingling, and seizure, Psych: Negative for depression, anxiety, suicide ideation, homicidal ideation, and hallucinations, Allergy/Immunology: Negative for hives, rash, and allergies, Endocrine: Negative for neck swelling, polydipsia, polyuria, polyphagia, and marked weight changes, Hematologic/Lymphatic: Negative for swollen nodes, abnormal bleeding, and unusual bruising. 07:43 ENT: Positive for Gum pain Teeth pain 07:43 Neuro: Positive for headache. Exam: 07:43 Constitutional: This is a well developed, well nourished patient who is awake, alert, manav and in no acute distress. Head/Face: Normocephalic, atraumatic. Eyes: Pupils equal round and reactive to light, extra-ocular motions intact. Lids and lashes normal. Conjunctiva and sclera are non-icteric and not injected. Cornea within normal limits. Periorbital areas with no swelling, redness, or edema. Neck: Trachea midline, no thyromegaly or masses palpated, and no cervical lymphadenopathy. Supple, full range of motion without nuchal rigidity, or vertebral point tenderness. No Meningismus. Chest/axilla: Normal chest wall appearance and motion. Nontender with no deformity. No lesions are appreciated. Cardiovascular: Regular rate and rhythm with a normal S1 and S2. No gallops, murmurs, or rubs. Normal PMI, no JVD. No pulse deficits. Respiratory: Lungs have equal breath sounds bilaterally, clear to auscultation and percussion. No rales, rhonchi or wheezes noted. No increased work of breathing, no retractions or nasal flaring. Abdomen/GI: Soft, non-tender, with normal bowel sounds. No distension or tympany. No guarding or rebound. No evidence of tenderness throughout. Back: No spinal tenderness. No costovertebral tenderness. Full range of motion. Skin: Warm, dry with normal turgor. Normal color with no rashes, no lesions, and no evidence of cellulitis. MS/ Extremity: Pulses equal, no cyanosis. Neurovascular intact. Full, normal range of motion. Neuro: Awake and alert, GCS 15, oriented to person, place, time, and situation. Cranial nerves II-XII grossly intact. Motor strength 5/5 in all extremities. Sensory grossly intact. Cerebellar exam normal. Normal gait. Psych: Awake, alert, with orientation to person, place and time. Behavior, mood, and affect are within normal limits. 07:43 ENT: Mouth: Lips: normal, moist, Oral mucosa: normal, pink and intact, moist, Gums: pink, on the right buccal mucosa, Tongue: is normal, abscess, is not appreciated, drooling, is not appreciated. Vital Signs: 07:18 BP 158 / 92; Pulse 78; Resp 16 S; Temp 98.2; Pulse Ox 99% on R/A; Weight 136.08 kg; iw Height 5 ft. 6 in. (167.64 cm); Pain 10/10; 07:52 BP 151 / 103; Pulse 71; Resp 16 S; Pulse Ox 99% on R/A; jl7 07:18 Body Mass Index 48.42 (136.08 kg, 167.64 cm) iw MDM: 07:23 Patient medically screened. [facility] 07:53 Data reviewed: vital signs, nurses notes. manav Administered Medications: 07:50 Drug: Augmentin 875 mg Route: PO; bp 08:19 Follow up: Response: No adverse reaction bp 07:50 Drug: Roscoe 10 mg-325 mg 1 tabs Route: PO; bp 08:19 Follow up: Response: Pain is decreased bp Disposition: 09/03/18 08:13 Discharged to Home. Impression: Headache, Dental root caries, Dental caries. - Condition is Stable. - Discharge Instructions: Dental Caries, Adult, Dental Pain, General Headache Without Cause. - Prescriptions for Amoxicillin 500 mg Oral Capsule - take 1 capsule by ORAL route every 8 hours for 10 days; 30 tablet. Ibuprofen 600 mg Oral Tablet - take 1 tablet by ORAL route every 8 hours As needed take with food; 21 tablet. Tylenol- Codeine #3 300-30 mg Oral Tablet - take 2 tablet by ORAL route every 6 hours As needed; 30 tablet. - Work release form, Medication Reconciliation Form, Thank You Letter, Antibiotic Education, Prescription Opioid Use form. - Follow up: Private Physician; When: 2 - 3 days; Reason: Recheck today's complaints, Continuance of care, Re-evaluation by your physician. Follow up: Paul Dunn DDS; When: 2 - 3 days; Reason: Recheck today's complaints, Continuance of care, Re-evaluation by your physician. Follow up: Audi Obrien MD; When: 2 - 3 days; Reason: Recheck today's complaints, Re-evaluation by your physician. - Problem is new. - Symptoms have improved. Signatures: Tavon Valverde MD MD cha Williams, Irene, RN RN iw Robert Norman RN RN bp Corrections: (The following items were deleted from the chart) 08:14 08:13 09/03/2018 08:13 Discharged to Home. Impression: Headache; Dental root caries; manav Dental caries. Condition is Stable. Discharge Instructions: Dental Caries, Adult, Dental Pain, General Headache Without Cause. Prescriptions for Amoxicillin 500 mg Oral Capsule - take 1 capsule by ORAL route every 8 hours for 10 days; 30 tablet, Ibuprofen 600 mg Oral Tablet - take 1 tablet by ORAL route every 8 hours As needed take with food; 21 tablet, Tylenol-Codeine #3 300-30 mg Oral Tablet - take 2 tablet by ORAL route every 6 hours As needed; 30 tablet. and Forms are Work release form, Medication Reconciliation Form, Thank You Letter, Antibiotic Education, Prescription Opioid Use. Follow up: Private Physician; When: 2 - 3 days; Reason: Recheck today's complaints, Continuance of care, Re-evaluation by your physician. Problem is new. Symptoms have improved. [facility] 08:19 08:14 09/03/2018 08:13 Discharged to Home. Impression: Headache; Dental root caries; bp Dental caries. Condition is Stable. Discharge Instructions: Dental Caries, Adult, Dental Pain, General Headache Without Cause. Prescriptions for Amoxicillin 500 mg Oral Capsule - take 1 capsule by ORAL route every 8 hours for 10 days; 30 tablet, Ibuprofen 600 mg Oral Tablet - take 1 tablet by ORAL route every 8 hours As needed take with food; 21 tablet, Tylenol-Codeine #3 300-30 mg Oral Tablet - take 2 tablet by ORAL route every 6 hours As needed; 30 tablet. and Forms are Work release form, Medication Reconciliation Form, Thank You Letter, Antibiotic Education, Prescription Opioid Use. Follow up: Private Physician; When: 2 - 3 days; Reason: Recheck today's complaints, Continuance of care, Re-evaluation by your physician. Follow up: Paul Dunn; When: 2 - 3 days; Reason: Recheck today's complaints, Continuance of care, Re-evaluation by your physician. Follow up: Audi Obrien; When: 2 - 3 days; Reason: Recheck today's complaints, Re-evaluation by your physician. Problem is new. Symptoms have improved. manav
--- NOTE | 2018-09-03 08:14 | ER ---
Nurse's Notes [facility] Name: Cindy Gomez Age: 28 yrs Sex: Female : 1990 Arrival Date: 09/03/2018 Time: 06:50 Bed 7 Private MD: Diagnosis: Headache;Dental root caries;Dental caries Presentation: 09/03 07:16 Presenting complaint: Patient states: intermittent headache for past month, pain iw radiates across forehead to right side, also had bad tooth on right side but tooth pain is gone, also c/o light sensitivity, pt states she couldn't go to work this morning due to the pain. Transition of care: patient was not received from another setting of care. Onset of symptoms was August 2018. Risk Assessment: Do you want to hurt yourself or someone else? Patient reports no desire to harm self or others. Initial Sepsis Screen: Does the patient meet any 2 criteria? No. Patient's initial sepsis screen is negative. Does the patient have a suspected source of infection? No. Patient's initial sepsis screen is negative. Care prior to arrival: None. 07:16 Method Of Arrival: Ambulatory iw 07:16 Acuity: AUDREY 3 iw Triage Assessment: 07:43 Headache History: The patient has had previous headaches and this one is similar to bp previous episodes. General: Appears in no apparent distress. uncomfortable, obese, Behavior is cooperative, appropriate for age, anxious. Pain: Complains of pain in head Pain currently is 6 out of 10 on a pain scale. Pain began suddenly, Also complains of photophobia. 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 - Social history:: Smoking status: Patient uses tobacco products, smokes one-half pack cigarettes per day. - Ebola Screening: : Patient negative for fever greater than or equal to 101.5 degrees Fahrenheit, and additional compatible Ebola Virus Disease symptoms Patient denies exposure to infectious person Patient denies travel to an Ebola-affected area in the 21 days before illness onset No symptoms or risks identified at this time. - Family history:: not pertinent. Screenin:43 Abuse screen: Denies threats or abuse. Denies injuries from another. Nutritional bp screening: No deficits noted. Tuberculosis screening: No symptoms or risk factors identified. Fall Risk None identified. Assessment: 07:20 General: Appears in no apparent distress. uncomfortable, obese, Behavior is bp cooperative, appropriate for age, anxious. Pain: Complains of pain in head. Neuro: Level of Consciousness is awake, alert, obeys commands, Oriented to person, place, time, situation, Appropriate for age Reports headache photophobia. Cardiovascular: No deficits noted. Respiratory: Airway is patent Respiratory effort is even, unlabored, Respiratory pattern is regular, symmetrical. GI: No signs and/or symptoms were reported involving the gastrointestinal system. : No signs and/or symptoms were reported regarding the genitourinary system. EENT: No deficits noted. Derm: No deficits noted. Musculoskeletal: Circulation, motion, and sensation intact. Range of motion: intact in all extremities. 08:18 Reassessment: PT D/C HOME AMBULATORY WITH FAMILY, DX WITH DENTAL CARIES. bp Vital Signs: 07:18 BP 158 / 92; Pulse 78; Resp 16 S; Temp 98.2; Pulse Ox 99% on R/A; Weight 136.08 kg; iw Height 5 ft. 6 in. (167.64 cm); Pain 10/10; 07:52 BP 151 / 103; Pulse 71; Resp 16 S; Pulse Ox 99% on R/A; jl7 07:18 Body Mass Index 48.42 (136.08 kg, 167.64 cm) iw ED Course: 06:50 Patient arrived in ED. am2 07:13 Clau Alaniz, RN is Primary Nurse. jl7 07:17 Triage completed. iw 07:19 Arm band placed on. iw 07:23 Tavon Valverde MD is Attending Physician. manav 07:43 Patient has correct armband on for positive identification. Bed in low position. Call bp light in reach. Side rails up X2. Adult w/ patient. 08:13 Paul Dunn DDS is Referral Physician. manav 08:13 Audi Obrien MD is Referral Physician. manav 08:18 No provider procedures requiring assistance completed. Patient did not have IV access bp during this emergency room visit. Administered Medications: 07:50 Drug: Augmentin 875 mg Route: PO; bp 08:19 Follow up: Response: No adverse reaction bp 07:50 Drug: [place] 10 mg-325 mg 1 tabs Route: PO; bp 08:19 Follow up: Response: Pain is decreased bp Outcome: 08:13 Discharge ordered by . [facility] 08:18 Discharged to home ambulatory, with family. bp 08:18 Condition: stable 08:18 Discharge instructions given to patient, Instructed on discharge instructions, follow up and referral plans. medication usage, Demonstrated understanding of instructions, follow-up care, medications, Prescriptions given X 3. 08:19 Patient left the ED. bp Signatures: Tavon Valverde MD MD cha Williams, Irene RN Clau Dahl RN RN jl7 Mary Salmon Brian RN RN bp
== END 2018-09-03 08:19 | disposition home or self-care (01) ==
LOC: ER 06:48
DX: K02.7 Dental root caries (principal); K02.9 Dental caries, unspecified; R51 Headache; F17.210 Nicotine dependence, cigarettes, uncomplicated
CPT/HCPCS: 99283

== ENCOUNTER 2018-10-21 22:04 | Emergency (ER) | payer SELFPAY ==
--- NOTE | 2018-10-21 23:01 | ER ---
Nurse's Notes [facility] Name: Cindy Gomez Age: 28 yrs Sex: Female : 1990 Arrival Date: 10/21/2018 Time: 22:07 Bed 24 Private MD: Diagnosis: Cracked tooth Presentation: 10/21 22:18 Presenting complaint: Patient states: she has a broken tooth and it's really hurting ca1 right now. Transition of care: patient was not received from another setting of care. Onset of symptoms was October 21, 2018. Risk Assessment: Do you want to hurt yourself or someone else? Patient reports no desire to harm self or others. Initial Sepsis Screen: Does the patient meet any 2 criteria? No. Patient's initial sepsis screen is negative. Does the patient have a suspected source of infection? No. Patient's initial sepsis screen is negative. Care prior to arrival: None. 22:18 Method Of Arrival: Ambulatory ca1 22:18 Acuity: AUDREY 4 ca1 Triage Assessment: 22:20 General: Appears in no apparent distress. comfortable, Behavior is calm, cooperative, ca1 appropriate for age. Pain: Complains of pain in right buccal mucosa and upper right second molar Pain radiates to right jaw Pain currently is 9 out of 10 on a pain scale. Pain began 1 day ago. EENT: Reports pain in upper right second molar. 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 - Social history:: Smoking status: Patient uses tobacco products, denies chronic smoking, but will smoke occasionally. - Ebola Screening: : No symptoms or risks identified at this time. Screenin:26 Abuse screen: Denies threats or abuse. Denies injuries from another. Nutritional ca1 screening: No deficits noted. Tuberculosis screening: No symptoms or risk factors identified. Fall Risk None identified. Assessment: 22:26 General: Appears in no apparent distress. comfortable, Behavior is calm, cooperative, ca1 appropriate for age. Pain: Complains of pain in upper right second molar and right buccal mucosa Pain radiates to face and right jaw and mouth Pain currently is 9 out of 10 on a pain scale. Pain began 1 day ago. Neuro: Level of Consciousness is awake, alert, obeys commands, Oriented to person, place, time, situation. Cardiovascular: Heart tones S1 S2 present Capillary refill < 3 seconds Patient's skin is warm and dry. Respiratory: Airway is patent Respiratory effort is even, unlabored, Respiratory pattern is regular, symmetrical, Breath sounds are clear bilaterally. GI: No deficits noted. No signs and/or symptoms were reported involving the gastrointestinal system. : No deficits noted. No signs and/or symptoms were reported regarding the genitourinary system. EENT: No deficits noted. No signs and/or symptoms were reported regarding the EENT system. Derm: Skin is intact, is healthy with good turgor, Skin is pink, warm \T\ dry. Musculoskeletal: Circulation, motion, and sensation intact. Capillary refill < 3 seconds. 23:09 Reassessment: MSE done. PT declines treatment. ca1 Vital Signs: 22:15 BP 118 / 58; Pulse 88; Resp 20; Temp 98.1; Pulse Ox 99% ; lt1 22:20 BP 118 / 59; Pulse 88; Resp 19; Pulse Ox 99% on R/A; Weight 136.08 kg; Height 5 ft. 6 ca1 in. (167.64 cm); Pain 9/10; 22:20 Body Mass Index 48.42 (136.08 kg, 167.64 cm) ca1 ED Course: 22:07 Patient arrived in ED. mr 22:12 Domenic Lei MD is Attending Physician. tw4 22:18 Tegan Henao RN is Primary Nurse. ca1 22:19 Triage completed. ca1 22:20 Arm band placed on right wrist. ca1 22:26 Patient has correct armband on for positive identification. Bed in low position. Call ca1 light in reach. Side rails up X 1. Pulse ox on. NIBP on. Warm blanket given. 22:46 Tegan Henao RN is Primary Nurse. ca1 23:13 No provider procedures requiring assistance completed. Patient did not have IV access ca1 during this emergency room visit. Administered Medications: No medications were administered Outcome: 23:00 Discharge ordered by . tw4 23:13 Discharged to home ambulatory. ca1 23:13 Condition: stable 23:13 Following a medical screening exam, the patient was provided information regarding alternative care sites and resources available per registration personnel. 23:13 Patient left the ED. ca1 Signatures: Pike Whit mr Domenic Lei MD MD tw4 Tegan Henao RN RN ca1 Hilda Mccracken lt1 Corrections: (The following items were deleted from the chart) 22:16 22:14 BP 138 / 106; Pulse 88bpm; Resp 20bpm; Pulse Ox 99%; Temp 98.1F; lt1 lt1
--- NOTE | 2018-10-21 23:02 | EDPHYS ---
Physician Documentation [facility] Name: Cindy Gomez Age: 28 yrs Sex: Female : 1990 Arrival Date: 10/21/2018 Time: 22:07 Bed 24 Private MD: ED Physician Domenic Lei HPI: 10/21 22:56 This 28 yrs old Black Female presents to ER via Ambulatory with complaints of Toothache.tw4 22:56 The patient presents with broken tooth/teeth. The problem is located in the upper right tw4 second molar. Onset: The symptoms/episode began/occurred today. Duration: The symptoms are continuous. Modifying factors: The symptoms are alleviated by nothing, the symptoms are aggravated by nothing. Associated signs and symptoms: The patient has no apparent associated signs or symptoms. Severity of symptoms: At their worst the symptoms were moderate, in the emergency department the symptoms are unchanged. The patient has not experienced similar symptoms in the past. 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 - Social history:: Smoking status: Patient uses tobacco products, denies chronic smoking, but will smoke occasionally. - Ebola Screening: : No symptoms or risks identified at this time. ROS: 22:56 Constitutional: Negative for fever, chills, and weight loss, Eyes: Negative for injury, tw4 pain, redness, and discharge, Cardiovascular: Negative for chest pain, palpitations, and edema, Respiratory: Negative for shortness of breath, cough, wheezing, and pleuritic chest pain, Abdomen/GI: Negative for abdominal pain, nausea, vomiting, diarrhea, and constipation, MS/Extremity: Negative for injury and deformity, Skin: Negative for injury, rash, and discoloration, Neuro: Negative for headache, weakness, numbness, tingling, and seizure. 22:56 ENT: Positive for Teeth pain Exam: 22:57 Constitutional: This is a well developed, well nourished patient who is awake, alert, tw4 and in no acute distress. Head/Face: Normocephalic, atraumatic. Chest/axilla: Normal chest wall appearance and motion. Nontender with no deformity. No lesions are appreciated. Cardiovascular: Regular rate and rhythm with a normal S1 and S2. No gallops, murmurs, or rubs. Normal PMI, no JVD. No pulse deficits. Respiratory: Lungs have equal breath sounds bilaterally, clear to auscultation and percussion. No rales, rhonchi or wheezes noted. No increased work of breathing, no retractions or nasal flaring. Abdomen/GI: Soft, non-tender, with normal bowel sounds. No distension or tympany. No guarding or rebound. No evidence of tenderness throughout. Skin: Warm, dry with normal turgor. Normal color with no rashes, no lesions, and no evidence of cellulitis. MS/ Extremity: Pulses equal, no cyanosis. Neurovascular intact. Full, normal range of motion. Neuro: Awake and alert, GCS 15, oriented to person, place, time, and situation. Cranial nerves II-XII grossly intact. Motor strength 5/5 in all extremities. Sensory grossly intact. Cerebellar exam normal. Normal gait. Vital Signs: 22:15 BP 118 / 58; Pulse 88; Resp 20; Temp 98.1; Pulse Ox 99% ; lt1 22:20 BP 118 / 59; Pulse 88; Resp 19; Pulse Ox 99% on R/A; Weight 136.08 kg; Height 5 ft. 6 ca1 in. (167.64 cm); Pain 9/10; 22:20 Body Mass Index 48.42 (136.08 kg, 167.64 cm) ca1 MDM: 22:12 Patient medically screened. 4 22:59 Data reviewed: vital signs, nurses notes. Counseling: [facility] and/or guardian regarding: the historical points, exam findings, and any diagnostic results supporting the discharge/admit diagnosis. Medical screen evaluation completed. EMTALA emergency medical condition absent. Administered Medications: No medications were administered Disposition: 10/21/18 23:00 Discharged to Home. Impression: Cracked tooth. - Condition is Stable. - Discharge Instructions: Dental Pain. - Medication Reconciliation Form, Thank You Letter, Antibiotic Education, Prescription Opioid Use, Work release form form. - Follow up: Private Physician; When: Upon discharge from the Emergency Department; Reason: If symptoms return, Recheck today's complaints, Continuance of care. - Problem is new. - Symptoms have improved. Signatures: Domenic Lei MD MD tw4 Tegan Henao RN RN ca1 Corrections: (The following items were deleted from the chart) 23:13 23:00 10/21/2018 23:00 Discharged to Home. Impression: Cracked tooth. Condition is ca1 Stable. Forms are Work release form, Medication Reconciliation Form, Thank You Letter, Antibiotic Education, Prescription Opioid Use. Follow up: Private Physician; When: Upon discharge from the Emergency Department; Reason: If symptoms return, Recheck today's complaints, Continuance of care. Problem is new. Symptoms have improved. tw4
== END 2018-10-21 23:13 | disposition home or self-care (01) ==
LOC: ER 22:04
DX: K03.81 Cracked tooth (principal); Z72.0 Tobacco use
CPT/HCPCS: 99282

== ENCOUNTER 2018-11-28 06:46 | Emergency (ER) | payer SELFPAY ==
--- NOTE | 2018-11-28 07:49 | EDPHYS ---
Physician Documentation [facility] Name: Cindy Gomez Age: 28 yrs Sex: Female : 1990 Arrival Date: 11/28/2018 Time: 06:48 Bed 13 Private MD: ED Physician Nolan Reyes HPI: 11/28 07:40 This 28 yrs old Black Female presents to ER via Ambulatory with complaints of Ear Pain. ps1 07:40 patient states that she has dental pain from a cracked tooth. This pain is actually ps1 better controlled but now having right ear pain that started this morning. Patient tried Tylenol without remission. No fever. Pain described as throbbing and pressure like. . 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 - Social history:: Smoking status: . - Ebola Screening: : Patient negative for fever greater than or equal to 101.5 degrees Fahrenheit, and additional compatible Ebola Virus Disease symptoms. ROS: 07:40 Constitutional: Negative for fever, chills, and weight loss, Eyes: Negative for injury, ps1 pain, redness, and discharge, Neck: Negative for injury, pain, and swelling, Cardiovascular: Negative for chest pain, palpitations, and edema, Respiratory: Negative for shortness of breath, cough, wheezing, and pleuritic chest pain, Abdomen/GI: Negative for abdominal pain, nausea, vomiting, diarrhea, and constipation, MS/Extremity: Negative for injury and deformity, Skin: Negative for injury, rash, and discoloration, Neuro: Negative for headache, weakness, numbness, tingling, and seizure. 07:40 ENT: Positive for dental pain, ear pain. Exam: 07:40 Constitutional: This is a well developed, well nourished patient who is awake, alert, ps1 and in no acute distress. Head/Face: Normocephalic, atraumatic. Eyes: Pupils equal round and reactive to light, extra-ocular motions intact. Lids and lashes normal. Conjunctiva and sclera are non-icteric and not injected. Chest/axilla: Normal chest wall appearance and motion. Nontender with no deformity. No lesions are appreciated. Cardiovascular: Regular rate and rhythm. No gallops, murmurs, or rubs. Normal PMI, no JVD. No pulse deficits. Respiratory: Lungs have equal breath sounds bilaterally, clear to auscultation and percussion. No rales, rhonchi or wheezes noted. No increased work of breathing, no retractions or nasal flaring. Abdomen/GI: Soft, non-tender, with normal bowel sounds. No distension or tympany. No guarding or rebound. No evidence of tenderness throughout. MS/ Extremity: Pulses equal, no cyanosis. Neurovascular intact. Full, normal range of motion. Neuro: Awake and alert, GCS 15, oriented to person, place, time, and situation. Cranial nerves II-XII grossly intact. Sensory grossly intact. Psych: Awake, alert, with orientation to person, place and time. Behavior, mood, and affect are within normal limits. 07:40 ENT: External ear(s): are unremarkable, Ear canal(s): mild cerumen in right ear. no effusion. TM normal. , Mouth: is normal, Dental exam: fractured teeth are noted, specifically the upper right second molar (#2). Vital Signs: 07:02 BP 148 / 108; Pulse 80; Resp 19; Temp 97.6(TE); Pulse Ox 98% on R/A; Pain 7/10; tw2 07:52 BP 137 / 91; Pulse 84; Resp 19; Pulse Ox 99% on R/A; rb1 MDM: 07:38 Patient medically screened. ps1 07:40 Data reviewed: vital signs, nurses notes, and as a result, I will discharge patient, ps1 check give decadron in the ED. Home with clindamycin and aleve. Stable for DC.. 11/28 07:40 Order name: Blood Glucose Level; Complete Time: 07:51 ps1 Administered Medications: 07:45 Drug: Decadron 10 mg Route: PO; rb1 08:00 Follow up: Response: No adverse reaction rb1 Point of Care Testing: Blood Glucose: 07:50 Blood Glucose: 88 mg/dL; rb1 Ranges: Critical Glucose Levels:Adult <50 mg/dl or >400 mg/dl <40 mg/dl or >180 mg/dl Disposition: 11/28/18 07:48 Discharged to Home. Impression: Otalgia, right ear. - Condition is Stable. - Discharge Instructions: Earache, Adult. - Prescriptions for Anaprox DS 550 mg Oral Tablet - take 1 tablet by ORAL route every 12 hours As needed; 20 tablet. Clindamycin HCl 300 mg Oral Capsule - take 1 capsule by ORAL route every 6 hours for 10 days; 40 capsule. - Work release form, Medication Reconciliation Form, Thank You Letter, Antibiotic Education, Prescription Opioid Use form. - Follow up: Emergency Department; When: As needed; Reason: Fever > 102 F, Further diagnostic work-up, Recheck today's complaints. - Problem is new. - Symptoms are unchanged. Signatures: Meghann Garcia, RN RN rb1 Charisma Tariq RN RN tw2 Nolan Reyes MD MD ps1 Corrections: (The following items were deleted from the chart) 08:03 07:48 11/28/2018 07:48 Discharged to Home. Impression: Otalgia, right ear. Condition is rb1 Stable. Forms are Work release form, Medication Reconciliation Form, Thank You Letter, Antibiotic Education, Prescription Opioid Use. Follow up: Emergency Department; When: As needed; Reason: Fever > 102 F, Further diagnostic work-up, Recheck today's complaints. Problem is new. Symptoms are unchanged. ps1
--- NOTE | 2018-11-28 07:49 | ER ---
Nurse's Notes [facility] Name: Cindy Gomez Age: 28 yrs Sex: Female : 1990 Arrival Date: 11/28/2018 Time: 06:48 Bed 13 Private MD: Diagnosis: Otalgia, right ear Presentation: 11/28 06:59 Presenting complaint: Patient states: I am having an ear ache, RIGHT ear, i woke up tw2 this morning my tooth doesn't hurt but my ear does, my tooth hurt months ago but it dont hurt now. Transition of care: patient was not received from another setting of care. Onset of symptoms was November 28, 2018. Risk Assessment: Do you want to hurt yourself or someone else? Patient reports no desire to harm self or others. Initial Sepsis Screen: Does the patient meet any 2 criteria? HR > 90 bpm. No. Patient's initial sepsis screen is negative. Does the patient have a suspected source of infection? No. Patient's initial sepsis screen is negative. Care prior to arrival: None. 06:59 Method Of Arrival: Ambulatory tw2 06:59 Acuity: AUDREY 4 tw2 07:02 Note "i took tylenol a half our ago". tw2 Triage Assessment: 07:01 General: Appears in no apparent distress. obese, Behavior is calm, cooperative, tw2 appropriate for age. Pain: Complains of pain in right ear. EENT: Reports pain in right ear. 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 - Social history:: Smoking status: . - Ebola Screening: : Patient negative for fever greater than or equal to 101.5 degrees Fahrenheit, and additional compatible Ebola Virus Disease symptoms. Screenin:05 Abuse screen: Denies threats or abuse. Nutritional screening: No deficits noted. rb1 Tuberculosis screening: No symptoms or risk factors identified. Fall Risk None identified. Assessment: 07:05 General: Appears uncomfortable, Behavior is calm, cooperative, Denies fever. Pain: rb1 Complains of pain in right ear Pain currently is 7 out of 10 on a pain scale. Pain began 1 day ago. Neuro: Level of Consciousness is awake, alert, obeys commands, Oriented to person, place, time, situation. Cardiovascular: Capillary refill < 3 seconds is brisk in bilateral fingers. Respiratory: Airway is patent Respiratory effort is even, unlabored, Respiratory pattern is regular, symmetrical. GI: No signs and/or symptoms were reported involving the gastrointestinal system. : No signs and/or symptoms were reported regarding the genitourinary system. Derm: Skin is dry, Skin is normal, Skin temperature is warm. 07:05 General: Pt. took Tylenol at 0600 this morning.. rb1 08:02 Reassessment: Patient appears in no apparent distress at this time. No changes from rb1 previously documented assessment. Vital Signs: 07:02 BP 148 / 108; Pulse 80; Resp 19; Temp 97.6(TE); Pulse Ox 98% on R/A; Pain 7/10; tw2 07:52 BP 137 / 91; Pulse 84; Resp 19; Pulse Ox 99% on R/A; rb1 ED Course: 06:48 Patient arrived in ED. es 07:01 Triage completed. tw2 07:01 Arm band placed on. tw2 07:05 Patient has correct armband on for positive identification. Bed in low position. Call rb1 light in reach. Side rails up X 1. Pulse ox on. NIBP on. 07:16 Nolan Reyes MD is Attending Physician. ps1 07:27 Meghann Garcia, RN is Primary Nurse. rb1 08:02 No provider procedures requiring assistance completed. Patient did not have IV access rb1 during this emergency room visit. Administered Medications: 07:45 Drug: Decadron 10 mg Route: PO; rb1 08:00 Follow up: Response: No adverse reaction rb1 Point of Care Testing: Blood Glucose: 07:50 Blood Glucose: 88 mg/dL; rb1 Ranges: Outcome: 07:48 Discharge ordered by . ps1 08:02 Discharged to home ambulatory. rb1 08:02 Condition: stable 08:02 Discharge instructions given to patient, Instructed on discharge instructions, follow up and referral plans. medication usage, Demonstrated understanding of instructions, follow-up care, medications, Prescriptions given X 2. 08:03 Patient left the ED. rb1 Signatures: Symone Davies Rebecca, RN RN rb1 Charisma Tariq RN RN tw2 Nolan Reyes MD MD ps1
[2018-11-28] MEDS ORDERED: DEXAMETHASONE 4 MG TAB ONE (07:58)
== END 2018-11-28 08:03 | disposition home or self-care (01) ==
LOC: ER 06:46
DX: H92.01 Otalgia, right ear (principal)
CPT/HCPCS: 82962; 99283

== ENCOUNTER 2018-12-04 23:58 | Emergency (ER) | payer SELFPAY ==
[2018-12-05] MEDS ORDERED: KETOROLAC 30 MG/ML INJ ONE (00:43)
[2018-12-05] MEDS ORDERED: HYDROCODONE/APAP 10/325 TAB ONE (00:45)
--- NOTE | 2018-12-05 00:57 | EDPHYS ---
Physician Documentation [facility] Name: Cindy Gomez Age: 28 yrs Sex: Female : 1990 Arrival Date: 12/04/2018 Time: 23:59 Bed 12 Private MD: ED Physician Jose Enrique Castillo HPI: 12/05 00:23 This 28 yrs old Black Female presents to ER via Ambulatory with complaints of Pain in jr8 Gums. 00:23 Onset: The symptoms/episode began/occurred gradually, 2 week(s) ago. Associated signs jr8 and symptoms: The patient has no apparent associated signs or symptoms. Modifying factors: The patient symptoms are alleviated by nothing, the patient symptoms are aggravated by drinking, eating food. The patient has experienced similar episodes in the past, a few times. The patient has been recently seen at the [facility] Emergency Department, last week, for similar complaints was given a prescription for antibiotics. Patient reports R upper 2nd molar pain due to fractured tooth. Patient has had multiple similar episodes in the past, including being seen here last week for it and placed on Clindamycin. Patient reports that Clindamycin "never works" for her and she has seen no improvement in the pain or infection. Patient requests Amoxicillin. . 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 - Social history:: Smoking status: Patient uses tobacco products, smokes one-half pack cigarettes per day. - Ebola Screening: : No symptoms or risks identified at this time. ROS: 00:25 Constitutional: Negative for fever, chills, and weight loss, Cardiovascular: Negative jr8 for chest pain, palpitations, and edema, Respiratory: Negative for shortness of breath, cough, wheezing, and pleuritic chest pain, Abdomen/GI: Negative for abdominal pain, nausea, vomiting, diarrhea, and constipation, Skin: Negative for injury, rash, and discoloration, Neuro: Negative for headache, weakness, numbness, tingling, and seizure. 00:25 ENT: Positive for dental pain, Negative for ear pain, Gum pain sinus pain, sore throat, difficulty swallowing, difficulty handling secretions, hoarseness. Exam: 00:26 Constitutional: This is a well developed, well nourished patient who is awake, alert, jr8 and in no acute distress. Head/Face: Normocephalic, atraumatic. Neck: Trachea midline, no thyromegaly or masses palpated, and no cervical lymphadenopathy. Supple, full range of motion without nuchal rigidity, or vertebral point tenderness. No Meningismus. Cardiovascular: Regular rate and rhythm with a normal S1 and S2. No gallops, murmurs, or rubs. Normal PMI, no JVD. No pulse deficits. Respiratory: Lungs have equal breath sounds bilaterally, clear to auscultation and percussion. No rales, rhonchi or wheezes noted. No increased work of breathing, no retractions or nasal flaring. Abdomen/GI: Soft, non-tender, with normal bowel sounds. No distension or tympany. No guarding or rebound. No evidence of tenderness throughout. Skin: Warm, dry with normal turgor. Normal color with no rashes, no lesions, and no evidence of cellulitis. Neuro: Awake and alert, GCS 15, oriented to person, place, time, and situation. Cranial nerves II-XII grossly intact. Motor strength 5/5 in all extremities. Sensory grossly intact. Cerebellar exam normal. Normal gait. 00:26 ENT: External ear(s): are unremarkable, Ear canal(s): are normal, TM's: are normal, Nose: is normal, Mouth: is normal, no abscess, no drooling, (-) trismus Posterior pharynx: is normal, no erythema, no pooling of secretions, no swelling, Dental exam: fractured teeth are noted, pain, that is severe, specifically in the upper right second molar (#2), Voice: is normal. Vital Signs: 00:10 BP 152 / 96; Pulse 67; Resp 18; Temp 98.1; Pulse Ox 99% on R/A; Weight 142.88 kg (R); aa1 Height 5 ft. 6 in. (167.64 cm); Pain 10/10; 01:15 BP 133 / 81; Pulse 70; Resp 16; Temp 98.0; Pulse Ox 100% on R/A; Pain 5/10; aa1 00:10 Body Mass Index 50.84 (142.88 kg, 167.64 cm) aa1 MDM: 00:17 Patient medically screened. jr8 00:55 Data reviewed: vital signs, nurses notes, and as a result, I will discharge patient, emerson administer antibiotics. Counseling: I had a detailed discussion with the patient and/or guardian regarding: the historical points, exam findings, and any diagnostic results supporting the discharge/admit diagnosis, the need for outpatient follow up, for definitive care, a dentist, to return to the emergency department if symptoms worsen or persist or if there are any questions or concerns that arise at home. ED course: Patient reports pain improvement after medication. Spoke with patient regarding need to follow up with dentist. Patient verbalized understanding. . Administered Medications: 00:35 Drug: TORadol - Ketorolac 15 mg Route: IM; Site: right deltoid; aa1 01:16 Follow up: Response: No adverse reaction; Pain is decreased aa1 00:35 Drug: [place] 10 mg-325 mg 1 tabs Route: PO; aa1 01:16 Follow up: Response: No adverse reaction; Pain is decreased aa1 Disposition: 01:45 Co-signature as Attending Physician, Jose Enrique Castillo MD. antonio Disposition: 12/05/18 00:57 Discharged to Home. Impression: Dental caries, unspecified, Pulpitis. - Condition is Stable. - Discharge Instructions: Dental Caries, Adult, Dental Pain. - Prescriptions for Amoxicillin 875 mg Oral Tablet - take 1 tablet by ORAL route every 12 hours for 10 days; 20 tablet. - Work release form, Medication Reconciliation Form, Thank You Letter, Antibiotic Education, Prescription Opioid Use form. - Follow up: Private Physician; When: 2 - 3 days; Reason: Recheck today's complaints, Continuance of care, Re-evaluation by your physician. Follow up: Evan Bell DDS; When: 2 - 3 days; Reason: Recheck today's complaints, Continuance of care, Re-evaluation by your physician. - Problem is new. - Symptoms have improved. Signatures: Edna Moreno RN RN aa1 Jose Enrique Castillo MD MD pkl Chris Pitts PA PA jr8 Corrections: (The following items were deleted from the chart) 01:17 00:57 12/05/2018 00:57 Discharged to Home. Impression: Dental caries, unspecified; aa1 Pulpitis. Condition is Stable. Forms are Medication Reconciliation Form, Thank You Letter, Antibiotic Education, Prescription Opioid Use. Follow up: Private Physician; When: 2 - 3 days; Reason: Recheck today's complaints, Continuance of care, Re-evaluation by your physician. Follow up: Evan Bell; When: 2 - 3 days; Reason: Recheck today's complaints, Continuance of care, Re-evaluation by your physician. Problem is new. Symptoms have improved. jr8
--- NOTE | 2018-12-05 00:57 | ER ---
Nurse's Notes [facility] Name: Cindy Gomez Age: 28 yrs Sex: Female : 1990 Arrival Date: 12/04/2018 Time: 23:59 Bed 12 Private MD: Diagnosis: Dental caries, unspecified;Pulpitis Presentation: 12/05 00:08 Presenting complaint: Patient states: she was seen here last week for a toothache and aa1 has been taking clindamycin but reports she is still having a lot of pain. States she has not been able to see a dentist because she does not have insurance. Transition of care: patient was not received from another setting of care. Onset of symptoms was November 28, 2018. Risk Assessment: Do you want to hurt yourself or someone else? Patient reports no desire to harm self or others. Initial Sepsis Screen: Does the patient meet any 2 criteria? No. Patient's initial sepsis screen is negative. Does the patient have a suspected source of infection? No. Patient's initial sepsis screen is negative. Care prior to arrival: None. 00:08 Method Of Arrival: Ambulatory aa1 00:08 Acuity: AUDREY 4 aa1 Triage Assessment: 00:10 General: Appears in no apparent distress. uncomfortable, Behavior is calm, cooperative, aa1 appropriate for age. 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 - Social history:: Smoking status: Patient uses tobacco products, smokes one-half pack cigarettes per day. - Ebola Screening: : No symptoms or risks identified at this time. Screenin:15 Abuse screen: Denies threats or abuse. Denies injuries from another. Nutritional aa1 screening: No deficits noted. Tuberculosis screening: No symptoms or risk factors identified. Fall Risk None identified. Assessment: 00:15 General: Appears in no apparent distress. uncomfortable, Behavior is calm, cooperative, aa1 appropriate for age. Pain: Complains of pain in upper right second molar (#2) Pain currently is 10 out of 10 on a pain scale. Neuro: Level of Consciousness is awake, alert, obeys commands, Oriented to person, place, time, situation, Gait is steady, Speech is normal. Respiratory: Airway is patent Respiratory effort is even, unlabored, Respiratory pattern is regular, symmetrical. GI: No signs and/or symptoms were reported involving the gastrointestinal system. : No signs and/or symptoms were reported regarding the genitourinary system. EENT: Reports pain in upper right second molar (#2). Derm: Skin is intact, is healthy with good turgor, Skin is pink, warm \T\ dry. Musculoskeletal: Circulation, motion, and sensation intact. Capillary refill < 3 seconds. 01:15 Reassessment: Patient appears in no apparent distress at this time. Patient is alert, aa1 oriented x 3, equal unlabored respirations, skin warm/dry/pink. Discussed d/c \T\ f/u instructions with pt; denies questions or concerns at this time Patient states feeling better. Vital Signs: 00:10 BP 152 / 96; Pulse 67; Resp 18; Temp 98.1; Pulse Ox 99% on R/A; Weight 142.88 kg (R); aa1 Height 5 ft. 6 in. (167.64 cm); Pain 10/10; 01:15 BP 133 / 81; Pulse 70; Resp 16; Temp 98.0; Pulse Ox 100% on R/A; Pain 5/10; aa1 00:10 Body Mass Index 50.84 (142.88 kg, 167.64 cm) aa1 ED Course: 12/04 23:59 Patient arrived in ED. ds1 12/05 00:09 Triage completed. aa1 00:10 Arm band placed on right wrist. aa1 00:15 Patient has correct armband on for positive identification. Bed in low position. aa1 00:16 Chris Pitts PA is PHCP. jr8 00:17 Jose Enrique Castillo MD is Attending Physician. jr8 00:35 Edna Moreno, DILLON is Primary Nurse. aa1 00:56 Evan Bell DDS is Referral Physician. jr8 01:15 No provider procedures requiring assistance completed. Patient did not have IV access aa1 during this emergency room visit. Administered Medications: 00:35 Drug: TORadol - Ketorolac 15 mg Route: IM; Site: right deltoid; aa1 01:16 Follow up: Response: No adverse reaction; Pain is decreased aa1 00:35 Drug: [place] 10 mg-325 mg 1 tabs Route: PO; aa1 01:16 Follow up: Response: No adverse reaction; Pain is decreased aa1 Outcome: 00:57 Discharge ordered by . jr8 01:15 Discharged to home ambulatory, with significant other. aa1 01:15 Condition: good 01:15 Discharge instructions given to patient, significant other, Instructed on discharge instructions, follow up and referral plans. medication usage, Demonstrated understanding of instructions, follow-up care, medications, Prescriptions given X 1. 01:17 Patient left the ED. aa1 Signatures: Edna Moreno RN RN aa1 Ute Forrester ds1 Chris Pitts PA PA jr8
== END 2018-12-05 01:17 | disposition home or self-care (01) ==
LOC: ER 23:58
DX: K02.9 Dental caries, unspecified (principal); K04.01 Reversible pulpitis; F17.210 Nicotine dependence, cigarettes, uncomplicated
CPT/HCPCS: 96372; 99283

== ENCOUNTER 2019-02-04 07:34 | Emergency (ER) | payer SELFPAY ==
--- OUTSIDE RECORDS SUMMARY | 2019-02-04 07:36 | XMS REPORT ---
:1990 [facility] [address] [place] [address] [address]. [address] [place] [address] Care Team Providers Name Role Phone Unavailable Unavailable Unavailable Problems This patient has no known problems. Allergies, Adverse Reactions, Alerts This patient has no known allergies or adverse reactions. Medications This patient has no known medications.
--- NOTE | 2019-02-04 08:00 | ER ---
Nurse's Notes [facility] Name: Cindy Gomez Age: 28 yrs Sex: Female : 1990 Arrival Date: 02/04/2019 Time: 07:36 Bed 23 Private MD: Diagnosis: Dental caries Presentation: 02/04 07:43 Presenting complaint: Patient states: i had my R upper tooth pulled 2 weeks ago and hj finish my Amoxi last , now my R ear hurts, my head hurts and i noticed a little green discharge on the cavity area; denies fever and chills; pain is 8/10;. Transition of care: patient was not received from another setting of care. Onset of symptoms was February 04, 2019. Risk Assessment: Do you want to hurt yourself or someone else? Patient reports no desire to harm self or others. Initial Sepsis Screen: Does the patient meet any 2 criteria? No. Patient's initial sepsis screen is negative. Does the patient have a suspected source of infection? No. Patient's initial sepsis screen is negative. Care prior to arrival: None. 07:43 Method Of Arrival: Ambulatory 07:43 Acuity: AUDREY 4 Triage Assessment: 07:46 Headache History:. General: Appears in no apparent distress. uncomfortable, Behavior is hj calm, cooperative, appropriate for age. Pain: Pain currently is 8 out of 10 on a pain scale. Pain began Also complains of. Neuro: Level of Consciousness is awake, alert, obeys commands, Oriented to person, place, time, situation, Appropriate for age. 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 - Social history:: Smoking status: Patient uses tobacco products, smokes one-half pack cigarettes per day, Patient/guardian denies using alcohol, Patient/guardian denies using street drugs, The patient lives alone. - Ebola Screening: : Patient negative for fever greater than or equal to 101.5 degrees Fahrenheit, and additional compatible Ebola Virus Disease symptoms Patient denies exposure to infectious person Patient denies travel to an Ebola-affected area in the 21 days before illness onset. - Family history:: not pertinent. Screenin:48 Abuse screen: Denies threats or abuse. Denies injuries from another. Nutritional hj screening: No deficits noted. Tuberculosis screening: No symptoms or risk factors identified. Fall Risk None identified. Vital Signs: 07:49 BP 153 / 98; Pulse 85; Resp 18; Temp 97.0(TE); Pulse Ox 100% on R/A; Weight 161.48 kg; hj Height 5 ft. 6 in. (167.64 cm); Pain 8/10; 07:49 Body Mass Index 57.46 (161.48 kg, 167.64 cm) hj ED Course: 07:36 Patient arrived in ED. mr 07:40 Jose Enrique Castillo MD is Attending Physician. antonio 07:41 Rajwinder Allred MD is Attending Physician. ma2 07:43 Carl Gavin, RN is Primary Nurse. hj 07:45 Triage completed. hj 07:48 Arm band placed on right wrist. hj 07:50 Patient has correct armband on for positive identification. Placed in gown. Bed in low hj position. Call light in reach. Side rails up X 1. Adult w/ patient. 08:31 No provider procedures requiring assistance completed. Patient did not have IV access hj during this emergency room visit. Administered Medications: 07:58 Drug: TORadol 60 mg Route: IM; Site: left deltoid; hj 08:15 Follow up: Response: No adverse reaction; Pain is decreased hj Outcome: 07:58 Discharge ordered by . [facility] 08:32 Discharged to home ambulatory. hj 08:32 Condition: stable 08:32 Discharge instructions given to patient, Instructed on discharge instructions, follow up and referral plans. medication usage, Demonstrated understanding of instructions, follow-up care, medications, Prescriptions given X 2. 08:32 Patient left the ED. hj Signatures: Jose Enrique Castillo MD MD pkl RiveraWhit mr Carl Gavin, RN RN Rajwinder Allred MD MD ma2
--- NOTE | 2019-02-04 08:01 | EDPHYS ---
Physician Documentation [facility] Name: Cindy Gomez Age: 28 yrs Sex: Female : 1990 Arrival Date: 02/04/2019 Time: 07:36 Bed 23 Private MD: ED Physician Rajwinder Allred HPI: 02/04 07:56 This 28 yrs old Black Female presents to ER via Ambulatory with complaints of Headache, ma2 Ear Pain. 07:56 Onset: The symptoms/episode began/occurred gradually, 10 day(s) ago. Associated signs ma2 and symptoms: Pertinent negatives: dizziness, malaise, neck stiffness. Severity of symptoms: At its worst the pain was moderate, in the emergency department the pain is unchanged. Headache History: The patient has had previous headaches. The patient has experienced similar episodes in the past. + dental pain. 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 - Social history:: Smoking status: Patient uses tobacco products, smokes one-half pack cigarettes per day, Patient/guardian denies using alcohol, Patient/guardian denies using street drugs, The patient lives alone. - Ebola Screening: : Patient negative for fever greater than or equal to 101.5 degrees Fahrenheit, and additional compatible Ebola Virus Disease symptoms Patient denies exposure to infectious person Patient denies travel to an Ebola-affected area in the 21 days before illness onset. - Family history:: not pertinent. ROS: 07:56 Constitutional: Negative for fever, chills, and weight loss, Abdomen/GI: Negative for ma2 abdominal pain, nausea, diarrhea, and constipation. 07:56 All other systems are negative. Exam: 07:56 Constitutional: This is a well developed, well nourished patient who is awake, alert, ma2 and in no acute distress. Head/Face: Normocephalic, atraumatic. Eyes: Pupils equal round and reactive to light, extra-ocular motions intact. Lids and lashes normal. Conjunctiva and sclera are non-icteric and not injected. Cornea within normal limits. Periorbital areas with no swelling, redness, or edema. ENT: Nares patent. No nasal discharge, no septal abnormalities noted. Tympanic membranes are normal and external auditory canals are clear. Oropharynx with no redness, swelling, or masses, exudates, or evidence of obstruction, uvula midline. Mucous membranes moist. + dental infection right upper 2nd molar no abscess' Neck: Trachea midline, no thyromegaly or masses palpated, and no cervical lymphadenopathy. Supple, full range of motion without nuchal rigidity, or vertebral point tenderness. No Meningismus. Chest/axilla: Normal chest wall appearance and motion. Nontender with no deformity. No lesions are appreciated. Cardiovascular: Regular rate and rhythm with a normal S1 and S2. No gallops, murmurs, or rubs. Normal PMI, no JVD. No pulse deficits. Respiratory: Lungs have equal breath sounds bilaterally, clear to auscultation and percussion. No rales, rhonchi or wheezes noted. No increased work of breathing, no retractions or nasal flaring. Abdomen/GI: Soft, non-tender, with normal bowel sounds. No distension or tympany. No guarding or rebound. No evidence of tenderness throughout. MS/ Extremity: Pulses equal, no cyanosis. Neurovascular intact. Full, normal range of motion. Neuro: Awake and alert, GCS 15, oriented to person, place, time, and situation. Cranial nerves II-XII grossly intact. Motor strength 5/5 in all extremities. Sensory grossly intact. Cerebellar exam normal. Normal gait. Psych: Awake, alert, with orientation to person, place and time. Behavior, mood, and affect are within normal limits. Vital Signs: 07:49 BP 153 / 98; Pulse 85; Resp 18; Temp 97.0(TE); Pulse Ox 100% on R/A; Weight 161.48 kg; hj Height 5 ft. 6 in. (167.64 cm); Pain 8/10; 07:49 Body Mass Index 57.46 (161.48 kg, 167.64 cm) MDM: 07:41 Patient medically screened. ma2 07:56 Differential diagnosis: migraine, otitis, sinusitis. Data reviewed: vital signs, nurses ma2 notes. Counseling: I had a detailed discussion with the patient and/or guardian regarding: the historical points, exam findings, and any diagnostic results supporting the discharge/admit diagnosis, the presence of at least one elevated blood pressure reading (>120/80) during this emergency department visit, the need for outpatient follow up. Response to treatment: the patient's symptoms have markedly improved after treatment. Administered Medications: 07:58 Drug: TORadol 60 mg Route: IM; Site: left deltoid; hj 08:15 Follow up: Response: No adverse reaction; Pain is decreased hj Disposition: 02/04/19 07:58 Discharged to Home. Impression: Dental caries. - Condition is Stable. - Discharge Instructions: Dental Pain. - Prescriptions for Augmentin 875- 125 mg Oral Tablet - take 1 tablet by ORAL route every 12 hours for 10 days; 20 tablet. Tylenol- Codeine #3 300-30 mg Oral Tablet - take 2 tablet by ORAL route every 6 hours As needed; 6 tablet. - Work release form, Medication Reconciliation Form, Thank You Letter, Antibiotic Education, Prescription Opioid Use form. - Follow up: Private Physician; When: Tomorrow; Reason: Continuance of care. Signatures: Carl Gavin RN RN Rajwinder Allred MD MD ma2 Corrections: (The following items were deleted from the chart) 08:32 07:58 02/04/2019 07:58 Discharged to Home. Impression: Dental caries. Condition is hj Stable. Forms are Medication Reconciliation Form, Thank You Letter, Antibiotic Education, Prescription Opioid Use. Follow up: Private Physician; When: Tomorrow; Reason: Continuance of care. ma2
[2019-02-04] MEDS ORDERED: KETOROLAC 30 MG/ML INJ ONE ×2 (08:21→08:23)
== END 2019-02-04 08:32 | disposition home or self-care (01) ==
LOC: ER 07:34
DX: K02.9 Dental caries, unspecified (principal); D64.9 Anemia, unspecified; F17.210 Nicotine dependence, cigarettes, uncomplicated
CPT/HCPCS: 96372; 99283

== ENCOUNTER 2019-02-10 03:45 | Emergency (ER) | payer SELFPAY ==
--- OUTSIDE RECORDS SUMMARY | 2019-02-10 03:48 | XMS REPORT ---
:1990 [facility] [address] [place] [address] [address] [place] [address] Care Team Providers Name Role Phone Unavailable Unavailable Unavailable Problems This patient has no known problems. Allergies, Adverse Reactions, Alerts This patient has no known allergies or adverse reactions. Medications This patient has no known medications.
--- NOTE | 2019-02-10 04:38 | ER ---
Nurse's Notes [facility] Name: Cindy Gomez Age: 28 yrs Sex: Female : 1990 Arrival Date: 02/10/2019 Time: 03:48 Bed 6 Private MD: Diagnosis: Encounter for screening, unspecified Presentation: 02/10 04:08 Presenting complaint: Patient states: I have a toothache in my left lower molar that tl1 started today, I am on amoxicillin for a tooth they pulled on my right side. Transition of care: patient was not received from another setting of care. Onset of symptoms was February 10, 2019. Risk Assessment: Do you want to hurt yourself or someone else? Patient reports no desire to harm self or others. Initial Sepsis Screen: Does the patient meet any 2 criteria? No. Patient's initial sepsis screen is negative. Does the patient have a suspected source of infection? No. Patient's initial sepsis screen is negative. Care prior to arrival: Medication(s) given: Motrin. 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 - Social history:: Smoking status: Patient uses tobacco products, quit approx 1 month ago, Patient uses alcohol, occasionally. - Ebola Screening: : Patient negative for fever greater than or equal to 101.5 degrees Fahrenheit, and additional compatible Ebola Virus Disease symptoms Patient denies exposure to infectious person Patient denies travel to an Ebola-affected area in the 21 days before illness onset. Screenin:10 Abuse screen: Denies threats or abuse. Denies injuries from another. Nutritional rr5 screening: No deficits noted. Tuberculosis screening: No symptoms or risk factors identified. Fall Risk None identified. Total Gonzales Fall Scale indicates No Risk (0-24 pts). Assessment: 04:10 General: Appears in no apparent distress. uncomfortable, Behavior is calm, cooperative, rr5 appropriate for age. 04:10 Pain: Complains of pain in left cheek Pain does not radiate. Pain currently is 8 out of rr5 10 on a pain scale. Quality of pain is described as aching, Pain began gradually, Is intermittent. Neuro: Level of Consciousness is awake, alert, obeys commands, Oriented to person, place, time, situation, Appropriate for age. Cardiovascular: Capillary refill < 3 seconds Patient's skin is warm and dry. Respiratory: Airway is patent Respiratory effort is even, unlabored, Respiratory pattern is regular, symmetrical. GI: No signs and/or symptoms were reported involving the gastrointestinal system. : No signs and/or symptoms were reported regarding the genitourinary system. EENT: swelling at left cheek noted.. Derm: Skin is intact, Skin temperature is warm. Musculoskeletal: Capillary refill < 3 seconds, Range of motion: intact in all extremities. 04:30 Reassessment: ED provider request for medical screen. rr5 04:40 Reassessment: Patient appears in no apparent distress at this time. Patient is alert, rr5 oriented x 3, equal unlabored respirations, skin warm/dry/pink. registration staff came and explained about medical screen. patient declined to proceed. Vital Signs: 04:11 BP 155 / 100; Pulse 81; Resp 16; Temp 97.4; Pulse Ox 100% ; Weight 161.48 kg; Height 5 tl1 ft. 6 in. (167.64 cm); Pain 8/10; 04:11 Body Mass Index 57.46 (161.48 kg, 167.64 cm) tl1 ED Course: 03:48 Patient arrived in ED. do 03:54 Stevan Juares MD is Attending Physician. gs 04:09 Triage completed. tl1 04:10 Patient has correct armband on for positive identification. Bed in low position. rr5 04:10 No provider procedures requiring assistance completed. Patient did not have IV access rr5 during this emergency room visit. 04:11 Arm band placed on right wrist. tl1 04:18 Steve Mccall RN is Primary Nurse. rr5 Administered Medications: No medications were administered Outcome: 04:38 Discharge ordered by . gs 04:45 Medical screen evaluation completed per provider. Patient declined treatment. rr5 04:45 Condition: stable 04:45 Following a medical screening exam, the patient was provided information regarding alternative care sites and resources available per registration personnel. 04:47 Patient left the ED. rr5 Signatures: Kylie Scruggs, RN RN tl1 Sofiya Lindquist Gregory, MD MD tSeve Mccall RN RN rr5 Corrections: (The following items were deleted from the chart) 07:27 04:45 Discharge instructions given to patient, Instructed on discharge instructions, rr5 follow up and referral plans. Demonstrated understanding of instructions, follow-up care, rr5
--- NOTE | 2019-02-10 04:38 | EDPHYS ---
Physician Documentation [facility] Name: Cindy Gomez Age: 28 yrs Sex: Female : 1990 Arrival Date: 02/10/2019 Time: 03:48 Bed 6 Private MD: ED Physician Stevan Juares HPI: 02/10 04:32 This 28 yrs old Black Female presents to ER via Ambulatory with complaints of Abscess. gs 04:33 The patient presents with swelling. The problem is located in the lower left first gs molar. Onset: The symptoms/episode began/occurred yesterday. Duration: The symptoms are continuous. Modifying factors: The symptoms are alleviated by nothing, the symptoms are aggravated by chewing. Associated signs and symptoms: Pertinent positives: pain, Pertinent negatives: fever, inability to eat. Severity of symptoms: At their worst the symptoms were moderate, in the emergency department the symptoms are unchanged. The patient has experienced similar episodes in the past. dds has teeth pulled. 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 - Social history:: Smoking status: Patient uses tobacco products, quit approx 1 month ago, Patient uses alcohol, occasionally. - Ebola Screening: : Patient negative for fever greater than or equal to 101.5 degrees Fahrenheit, and additional compatible Ebola Virus Disease symptoms Patient denies exposure to infectious person Patient denies travel to an Ebola-affected area in the 21 days before illness onset. ROS: 04:33 All other systems are negative. gs Exam: 04:33 Head/Face: Normocephalic, atraumatic. Eyes: Pupils equal round and reactive to light, gs extra-ocular motions intact. Lids and lashes normal. Conjunctiva and sclera are non-icteric and not injected. Cornea within normal limits. Periorbital areas with no swelling, redness, or edema. Neck: Trachea midline, no thyromegaly or masses palpated, and no cervical lymphadenopathy. Supple, full range of motion without nuchal rigidity, or vertebral point tenderness. No Meningismus. Cardiovascular: Regular rate and rhythm with a normal S1 and S2. No gallops, murmurs, or rubs. Normal PMI, no JVD. No pulse deficits. Respiratory: Lungs have equal breath sounds bilaterally, clear to auscultation and percussion. No rales, rhonchi or wheezes noted. No increased work of breathing, no retractions or nasal flaring. Abdomen/GI: Soft, non-tender, with normal bowel sounds. No distension or tympany. No guarding or rebound. No evidence of tenderness throughout. 04:33 Constitutional: The patient appears alert, awake. 04:33 ENT: Dental exam: abscess, that is mild, specifically in the lower left first molar. Vital Signs: 04:11 BP 155 / 100; Pulse 81; Resp 16; Temp 97.4; Pulse Ox 100% ; Weight 161.48 kg; Height 5 tl1 ft. 6 in. (167.64 cm); Pain 8/10; 04:11 Body Mass Index 57.46 (161.48 kg, 167.64 cm) tl1 MDM: 04:14 Patient medically screened. 04:33 Data reviewed: vital signs, nurses notes. Counseling: I had a detailed discussion with gs the patient and/or guardian regarding: the historical points, exam findings, and any diagnostic results supporting the discharge/admit diagnosis, the need for outpatient follow up, a dentist. 04:33 ED course: pt is on antibiotic and see dds. gs Administered Medications: No medications were administered Disposition: 02/10/19 04:38 Discharged to Home. Impression: Encounter for screening, unspecified. - Condition is Stable. - Medication Reconciliation Form, Thank You Letter, Antibiotic Education, Prescription Opioid Use form. - Follow up: Private Physician; When: 2 - 3 days; Reason: Re-evaluation by your physician. Signatures: Kylie Scruggs RN RN tl1 Stevan Juares MD MD Steve Mccall RN RN rr5 Corrections: (The following items were deleted from the chart) 04:47 04:38 02/10/2019 04:38 Discharged to Home. Impression: Encounter for screening, rr5 unspecified. Condition is Stable. Forms are Medication Reconciliation Form, Thank You Letter, Antibiotic Education, Prescription Opioid Use. Follow up: Private Physician; When: 2 - 3 days; Reason: Re-evaluation by your physician. gs
== END 2019-02-10 04:47 | disposition home or self-care (01) ==
LOC: ER 03:45
DX: Z13.9 Encounter for screening, unspecified (principal); Z72.0 Tobacco use
CPT/HCPCS: 99281

== ENCOUNTER 2020-05-04 19:02 | Emergency (ER) | payer SELFPAY ==
--- NOTE | 2020-05-04 20:31 | ER ---
Nurse's Notes [facility] Name: Cindy Gomez Age: 29 yrs Sex: Female : 1990 Arrival Date: 05/04/2020 Time: 19:02 Bed 23 Private MD: Diagnosis: Sciatica, right side Presentation: 05/04 19:06 Chief complaint: Patient states: "My right leg has been on and off for about a year jd3 now. I saw a primary care doctor and they didn't do anything about it. I was at work today and it just got so bad it hurt to stand up.". Coronavirus screen: At this time, the client does not indicate any symptoms associated with coronavirus-19. Ebola Screen: Patient negative for fever greater than or equal to 101.5 degrees Fahrenheit, and additional compatible Ebola Virus Disease symptoms. Initial Sepsis Screen: Does the patient meet any 2 criteria? No. Patient's initial sepsis screen is negative. Does the patient have a suspected source of infection? No. Patient's initial sepsis screen is negative. Risk Assessment: Do you want to hurt yourself or someone else? Patient reports no desire to harm self or others. Onset of symptoms was August 2019. 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 - Social history:: Smoking status: Patient reports the use of cigarette tobacco products, denies chronic smoking, but will smoke occasionally. Vital Signs: 19:09 BP 135 / 78; Pulse 89; Resp 19 S; Temp 97.5(O); Pulse Ox 100% on R/A; Weight 156.49 kg jd3 (R); Height 5 ft. 6 in. (167.64 cm) (R); Pain 10/10; 19:09 Body Mass Index 55.68 (156.49 kg, 167.64 cm) [facility] ED Course: 19:02 Patient arrived in ED. as 19:07 Triage completed. jd3 19:08 Arm band placed on. jd3 20:09 Marco Antonio Gallardo NP is PHCP. pm1 20:09 Yrn Simmons MD is Attending Physician. pm1 20:10 Preet Marcano, RN is Primary Nurse. sg Administered Medications: No medications were administered Outcome: 20:31 Discharge ordered by MD. pm1 20:56 Patient left the ED. sg Signatures: Preet Marcano, RN RN Jade Gamble Patrick, NP MULTICULTURAL MANAGER pm1 Jakob Lopez RN RN jd3
--- NOTE | 2020-05-04 20:31 | EDPHYS ---
Physician Documentation [facility] Name: Cindy Gomez Age: 29 yrs Sex: Female : 1990 Arrival Date: 05/04/2020 Time: 19:02 Bed 23 Private MD: ED Physician Yrn Simmons HPI: 05/04 20:31 This 29 yrs old Black Female presents to ER via Ambulatory with complaints of Leg Pain. pm1 20:31 The patient presents with pain, that is acute. The complaints affect the right hip and pm1 right quadriceps. Context: The problem was sustained at work, resulted from long period of standing, the patient can fully bear weight, the patient is able to ambulate, Problem is a result from a previous injury: No. Onset: The symptoms/episode began/occurred today. Modifying factors: The symptoms are alleviated by sitting and resting. the symptoms are aggravated by standing for long periods. Associated signs and symptoms: Pertinent negatives back pain. numbness tingling. Treatment prior to arrival includes: over the counter medications, NSAIDS. Severity of symptoms: in the emergency department the symptoms have resolved, and did so while in waiting room. The patient has experienced similar episodes in the past, a few times. The patient has not recently seen a physician. 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 - Social history:: Smoking status: Patient reports the use of cigarette tobacco products, denies chronic smoking, but will smoke occasionally. ROS: 20:31 Constitutional: Negative for fever, chills, and weight loss, Cardiovascular: Negative pm1 for chest pain, palpitations, and edema, Respiratory: Negative for shortness of breath, cough, wheezing, and pleuritic chest pain, Abdomen/GI: Negative for abdominal pain, nausea, vomiting, diarrhea, and constipation, Back: Negative for injury and pain, MS/Extremity: Negative for injury and deformity, Skin: Negative for injury, rash, and discoloration, Neuro: Negative for headache, weakness, numbness, tingling, and seizure. Exam: 20:31 Constitutional: This is a well developed, well nourished patient who is awake, alert, pm1 and in no acute distress. Head/Face: Normocephalic, atraumatic. Back: No spinal tenderness. No costovertebral tenderness. Full range of motion. Skin: Warm, dry with normal turgor. Normal color with no rashes, no lesions, and no evidence of cellulitis. MS/ Extremity: Pulses equal, no cyanosis. Neurovascular intact. Full, normal range of motion. Neuro: Awake and alert, GCS 15, oriented to person, place, time, and situation. Cranial nerves II-XII grossly intact. Motor strength 5/5 in all extremities. Sensory grossly intact. Cerebellar exam normal. Normal gait. Vital Signs: 19:09 BP 135 / 78; Pulse 89; Resp 19 S; Temp 97.5(O); Pulse Ox 100% on R/A; Weight 156.49 kg jd3 (R); Height 5 ft. 6 in. (167.64 cm) (R); Pain 10/10; 19:09 Body Mass Index 55.68 (156.49 kg, 167.64 cm) jd3 MDM: 20:12 Patient medically screened. pm1 20:31 Data reviewed: vital signs. Data interpreted: Pulse oximetry: on room air is 100 %. pm1 Interpretation: normal. Counseling: I had a detailed discussion with the patient and/or guardian regarding: the historical points, exam findings, and any diagnostic results supporting the discharge/admit diagnosis, the need for outpatient follow up, to return to the emergency department if symptoms worsen or persist or if there are any questions or concerns that arise at home. 20:31 ED course: Patient reports that pain has completely resolved while waiting in the pm1 waiting room. Just wants some medications for pain if it returns so that she can make it to her appointment with PCP on tuesday. Administered Medications: No medications were administered Disposition: 05/05 05:33 Co-signature as Attending Physician, Yrn Simmons MD. mh7 Disposition: 05/04/20 20:31 Discharged to Home. Impression: Sciatica, right side. - Condition is Stable. - Discharge Instructions: Sciatica. - Prescriptions for Lidoderm 5 % Topical adhesive patch,medicated - apply 1 patch by TRANSDERMAL route once daily As needed On for 12 hours and off for 12 hours in a 24 hour period; 30 Transdermal Patch. Cyclobenzaprine 10 mg Oral Tablet - take 1 tablet by ORAL route every 8 hours As needed; 30 tablet. - Medication Reconciliation Form, Thank You Letter, Antibiotic Education, Prescription Opioid Use form. - Work release form (05/04/20 21:05). sg - Follow up: Emergency Department; When: As needed; Reason: Worsening of condition. Follow up: Private Physician; When: 2 - 3 days; Reason: Recheck today's complaints, Continuance of care, Re-evaluation by your physician. - Problem is new. - Symptoms have improved. Signatures: Preet Marcano RN RN sg Marco Antonio Gallardo NP SAMPLE FINISHER pm1 Jakob Lopez RN RN jd3 Yrn Simmons MD MD mh7 Corrections: (The following items were deleted from the chart) 05/04 20:56 20:31 05/04/2020 20:31 Discharged to Home. Impression: Sciatica, right side. Condition sg is Stable. Forms are Medication Reconciliation Form, Thank You Letter, Antibiotic Education, Prescription Opioid Use. Follow up: Emergency Department; When: As needed; Reason: Worsening of condition. Follow up: Private Physician; When: 2 - 3 days; Reason: Recheck today's complaints, Continuance of care, Re-evaluation by your physician. Problem is new. Symptoms have improved. pm1
[2020-05-04 21:05] VITALS: BP 135/78; TEMP 97.5; O2SAT 100
== END 2020-05-04 20:56 | disposition home or self-care (01) ==
LOC: ER 19:02
DX: M54.31 Sciatica, right side (principal); F17.210 Nicotine dependence, cigarettes, uncomplicated
CPT/HCPCS: 99281

== ENCOUNTER 2020-05-31 17:17 | Emergency (ER) | payer SELFPAY ==
--- NOTE | 2020-05-31 18:58 | ER ---
Nurse's Notes [facility] Name: Cindy Gomez Age: 29 yrs Sex: Female : 1990 Arrival Date: 05/31/2020 Time: 17:19 Bed 26 Private MD: Diagnosis: Pain in right ankle and joints of right foot Presentation: 05/31 17:44 Chief complaint: Patient states: right ankle pain for a couple days, went out drinking iw last night and woke up with more pain and swelling to right ankle. Coronavirus screen: At this time, the client does not indicate any symptoms associated with coronavirus-19. Ebola Screen: Patient negative for fever greater than or equal to 101.5 degrees Fahrenheit, and additional compatible Ebola Virus Disease symptoms Patient denies exposure to infectious person. Patient denies travel to an Ebola-affected area in the 21 days before illness onset. No symptoms or risks identified at this time. Initial Sepsis Screen: Does the patient meet any 2 criteria? No. Patient's initial sepsis screen is negative. Does the patient have a suspected source of infection? No. Patient's initial sepsis screen is negative. Risk Assessment: Do you want to hurt yourself or someone else? Patient reports no desire to harm self or others. Onset of symptoms was May 28, 2020. 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 - Social history:: Smoking status: Patient reports the use of cigarette tobacco products, denies chronic smoking, but will smoke occasionally. Screenin:19 Abuse screen: Denies threats or abuse. Denies injuries from another. Nutritional iw screening: No deficits noted. Tuberculosis screening: No symptoms or risk factors identified. Fall Risk None identified. Assessment: 17:47 General: Appears in no apparent distress. Behavior is calm, cooperative. Pain: iw Complains of pain in right ankle and anterior aspect of right ankle. Neuro: Level of Consciousness is awake, alert, obeys commands, Oriented to person, place, time, situation, Moves all extremities. Full function. Respiratory: Respiratory effort is even, unlabored, Respiratory pattern is regular, symmetrical. Vital Signs: 17:44 BP 135 / 80; Pulse 92; Resp 16; Temp 98.8; Pulse Ox 98% on R/A; Weight 168.74 kg; iw Height 5 ft. 6 in. (167.64 cm); Pain 9/10; 17:44 Body Mass Index 60.04 (168.74 kg, 167.64 cm) iw ED Course: 17:19 Patient arrived in ED. ag5 17:45 Triage completed. iw 17:46 Arm band placed on. iw 18:00 Patient has correct armband on for positive identification. iw 18:19 Rosie Cross, RN is Primary Nurse. iw 18:19 Tavon Dimas PA is PHCP. cp 18:19 Tavon Valverde MD is Attending Physician. cp 19:07 Ankle Right 3 View XRAY In Process Unspecified. EDMS 19:20 No provider procedures requiring assistance completed. Patient did not have IV access iw during this emergency room visit. Administered Medications: 19:19 Drug: Ibuprofen 800 mg Route: PO; iw 19:19 Drug: [place] (7.5 mg-325 mg) 1 tabs Route: PO; iw 19:20 Not Given (Other Intervention Used): Indomethacin 50 mg PO once iw Outcome: 18:57 Discharge ordered by . cp 19:20 Condition: good iw 19:20 Discharge instructions given to patient, Instructed on discharge instructions, follow up and referral plans. medication usage, Demonstrated understanding of instructions, follow-up care, medications, Prescriptions given X 19:27 Discharged to home ambulatory, with crutches, with family. iw 19:28 Patient left the ED. iw Signatures: Dispatcher [employer] EDMS Rosie Cross RN RN iw Tavon Dimas PA PA Phi Donnelly ag5
--- NOTE | 2020-05-31 18:58 | EDPHYS ---
Physician Documentation [facility] Name: Cindy Gomez Age: 29 yrs Sex: Female : 1990 Arrival Date: 05/31/2020 Time: 17:19 Bed 26 Private MD: DEISY Physician Tavon Valverde HPI: 05/31 18:42 This 29 yrs old Black Female presents to ER via Wheelchair with complaints of Ankle cp Swelling. 18:42 The patient presents with pain, that is acute, swelling, tenderness. The complaints cp affect the medial aspect right ankle. Onset: The symptoms/episode began/occurred yesterday. Context: resulted from an unknown cause, The patient can partially bear weight on the affected extremity. the patient is able to ambulate, with moderate difficulty. Associated signs and symptoms: Pertinent negatives: calf tenderness, fever. Modifying factors: the symptoms are aggravated by weight bearing. [employer] TESTER: 18:00 LMP N/A - iw Historical: - Allergies: 17:46 No Known Allergies; iw - Home Meds: 17:46 Metformin Oral once daily [Active]; iw - PMHx: 17:46 Anemia; Diabetes - NIDDM; iw - PSHx: 17:46 None; iw - Immunization history:: Adult Immunizations. - Social history:: Smoking status: Patient reports the use of cigarette tobacco products, denies chronic smoking, but will smoke occasionally. ROS: 18:45 MS/extremity: Positive for pain, swelling, tenderness, of the medial aspect of right cp ankle, Negative for injury or acute deformity, decreased range of motion, paresthesias. 18:45 Eyes: Negative for injury, pain, redness, and discharge. cp 18:45 Constitutional: Negative for body aches, chills, fever. 18:45 Cardiovascular: Negative for chest pain. 18:45 Respiratory: Negative for cough, shortness of breath. 18:45 Abdomen/GI: Negative for abdominal pain. 18:45 Back: Negative for pain at rest, pain with movement. 18:45 Skin: Negative for rash. 18:45 All other systems are negative. Exam: 18:50 Constitutional: The patient appears in no acute distress, alert, awake, non-toxic, well cp developed, well nourished, obese. 18:50 Musculoskeletal/extremity: Extremities: grossly normal except: noted in the medial cp aspect right ankle: pain, swelling, tenderness, There is no evidence of decreased ROM, erythema, Pulses: noted to be 2+ in the right dorsalis pedis artery, Joints: All joints are normal except the right ankle displays anterior medial joint tenderness. 18:50 Skin: cellulitis, is not appreciated, no rash present. Vital Signs: 17:44 BP 135 / 80; Pulse 92; Resp 16; Temp 98.8; Pulse Ox 98% on R/A; Weight 168.74 kg; iw Height 5 ft. 6 in. (167.64 cm); Pain 9/10; 17:44 Body Mass Index 60.04 (168.74 kg, 167.64 cm) iw MDM: 18:20 Patient medically screened. manav 18:55 Differential diagnosis: fracture, sprain, gout, cellulitis. cp 18:56 Data reviewed: vital signs, nurses notes, radiologic studies, plain films. cp 18:56 Counseling: I had a detailed discussion with the patient and/or guardian regarding: the cp historical points, exam findings, and any diagnostic results supporting the discharge/admit diagnosis, radiology results, the need for outpatient follow up, a family practitioner. 18:56 Test interpretation: by ED physician or midlevel provider: xrays of right ankle cp negative for fracture. Response to treatment: the patient's symptoms have mildly improved after treatment, and as a result, I will discharge patient. 05/31 17:47 Order name: Ankle Right 3 View XRAY iw 05/31 18:51 Order name: Aircast Ankle Splint; Complete Time: 19:20 cp 05/31 18:51 Order name: Rohith wrap-joint; Complete Time: 19:20 cp 05/31 18:51 Order name: Crutches; Complete Time: 19:20 cp 05/31 18:55 Order name: Misc. Order: may give pain medication if patient has ride; Complete Time: cp 19:19 Administered Medications: 19:19 Drug: Ibuprofen 800 mg Route: PO; iw 19:19 Drug: [place] (7.5 mg-325 mg) 1 tabs Route: PO; iw 19:20 Not Given (Other Intervention Used): Indomethacin 50 mg PO once iw Disposition: 19:30 Chart complete. cp 06/01 14:46 Co-signature as Attending Physician, Tavon Valverde MD I agree with the assessment and manav plan of care. Disposition: 05/31/20 18:57 Discharged to Home. Impression: Pain in right ankle and joints of right foot. - Condition is Stable. - Discharge Instructions: Ankle Pain. - Prescriptions for indomethacin 50 mg Oral capsule - take 1 capsule by ORAL route 2 times per day As needed with food; 20 capsule. Tramadol 50 mg Oral Tablet - take 1 tablet by ORAL route every 8 hours as needed; 15 tablet. - Work release form, Medication Reconciliation Form, Thank You Letter, Antibiotic Education, Prescription Opioid Use form. - Follow up: Private Physician; When: 2 - 3 days; Reason: Recheck today's complaints. - Problem is new. - Symptoms have improved. Signatures: Dispatcher [employer] EDMS Tavon Valverde MD MD cha Williams, Irene, RN RN iw Tavon Dimas PA PA cp Corrections: (The following items were deleted from the chart) 05/31 19:28 18:57 05/31/2020 18:57 Discharged to Home. Impression: Pain in right ankle and joints iw of right foot. Condition is Stable. Forms are Medication Reconciliation Form, Thank You Letter, Antibiotic Education, Prescription Opioid Use. Follow up: Private Physician; When: 2 - 3 days; Reason: Recheck today's complaints. Problem is new. Symptoms have improved. cp
--- NOTE | 2020-05-31 19:16 | RAD REPORT ---
EXAM DESCRIPTION: RAD - Ankle Right 3 View - 05/31/2020 7:07 pm CLINICAL HISTORY: Right ankle pain FINDINGS: No fracture or dislocation is seen. Medial soft tissue swelling.
[2020-05-31] MEDS ORDERED: IBUPROFEN 400 MG TAB ONE (19:25)
[2020-05-31] MEDS ORDERED: HYDROCODONE/APAP 7.5/325 MG TAB ONE (19:25)
[2020-05-31 19:45] VITALS: BP 135/80; TEMP 98.8; O2SAT 98
== END 2020-05-31 19:28 | disposition home or self-care (01) ==
LOC: ER 17:17
DX: M25.571 Pain in right ankle and joints of right foot (principal); E11.9 Type 2 diabetes mellitus without complications; F17.210 Nicotine dependence, cigarettes, uncomplicated
CPT/HCPCS: 99283